=== PATIENT | female | born 1990 | race Caucasian/White ===

== ENCOUNTER 2016-06-20 16:16 | Emergency (ER) | payer OTHER ==
[2016-06-20 16:23] VITALS: BP 135/84
[2016-06-20] MEDS ORDERED: HYDROcodone/ACETAMINOPHEN 1 EACH TABLET PO ONE ×2 (16:38→18:59)
--- NOTE | 2016-06-20 16:47 | ERNOTE ---
ER Female HPI Date of Service: 06/20/16 Stated Complaint: 4 WEEKS - PAIN/BLEEDING Presenting Symptoms: vaginal bleeding Time Seen by Provider: 06/20/16 16:27 Source: patient Exam Limitations: no limitations Immunizations: IMMUNIZATION HX Immunizations Up to Date Yes History of Influenza Vaccine No Hx Pneumococcal Vaccination No Allergies/Adverse Reactions: Allergies ketorolac tromethamine [From Toradol] Allergy (Verified 06/20/16 16:22) swelling, itching, rash oxycodone Allergy (Verified 06/20/16 16:22) nausea and vomitting Home Medications: HOME MEDICATIONS Hydrocodone/Acetaminophen [[place] 5-325 Tablet] 1 - 2 tab PO QID PRN #20 tab 01/27 [Last Taken Unknown] - History of Present Illness Narrative: This is a 25-year-old he positive woman who may or may not have a viable intrauterine . For the last month or so she's been having some bleeding vaginally. She also has had some uterine cramps. 3 days ago she had a pelvic and transvaginal ultrasound which disclosed probable corpus luteum cyst in the right ovary but no clear-cut evidence of an intrauterine . By her report, hormone levels have been somewhat variable. 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 She also had more cramps in her right low pelvis, so for these 2 reasons she came to the [facility] emergency room by private vehicle. I have reviewed the ultrasound report from 3 days ago. Timing: Present: getting worse Quality: Present: moderate, cramping Onset Location: Present: RLQ, suprapubic Radiation: Present: none Activities at Onset: Present: none Prior Abdominal Problems: Present: similar symptoms Associated Symptoms: Present: other - vaginal bleeding Prior Treatment: Present: recently seen, treated by physician. Absent: currently on antibiotics Review of Systems - Review of Systems Constitutional: Present: no symptoms reported EYE: Present: no symptoms reported ENT: Present: no symptoms reported Respiratory: Present: no symptoms reported Cardiology: Present: no symptoms reported Gastrointestinal/Abdominal: Present: no symptoms reported Genitourinary: Present: See HPI Musculoskeletal: Present: no symptoms reported Skin: Present: no symptoms reported Neurological: Present: no symptoms reported Endocrine: Present: no symptoms reported Hematologic/Lymphatic: Present: no symptoms reported Psych: Present: no symptoms reported All Other Systems: All systems neg except as marked - Patient's Past Medical History Patient History - Medical: Bipolar Patient History - Cardiac/Respiratory: No pertinent hx Patient History - Cancer: No Hx of Cancer Patient History - Surgical Procedures: , D & C, T & A - Family History Mother Family History - Medical: Other Family History - Cardiac/Respiratory: CHF Grandmother-Maternal Family History - Medical: No pertinent hx Family History - Cardiac/Respiratory: No pertinent hx Multiple uncles Family History - Medical: No pertinent hx Family History - Cardiac/Respiratory: No pertinent hx - Social History Living Situations: home Does anyone smoke in the home?: Yes Smoking Status: Light tobacco smoker Alcohol Use: none Drug Use: none Physical Exam - Physical Exam General Appearance: Present: wd/wn, alert, no apparent distress, anxious Eye Exam: Normal inspection: bilateral, PERRL: bilateral, EOMI: bilateral Ears, Nose, Throat: Present: normal ENT inspection, hearing grossly normal Neck: Present: normal inspection Respiratory: Present: no respiratory distress, lungs clear Cardiovascular/Chest: Present: regular rate, rhythm, no murmur Gastrointestinal/Abdominal: Present: normal bowel sounds, nontender, nondistended, soft, no organomegaly Back Exam: Present: normal inspection, no CVA tenderness Extremity Exam: Present: normal inspection, no edema Neurological Exam: Present: alert, oriented Skin Exam: Present: cool/dry, pallor ED Progress - Results and Orders Patient's Lab Results:: I have reviewed the patient's lab results. - Vital Signs Patient's Vital Signs:: I have reviewed the patient's vital signs. Vital Signs: Vital Signs 06/20/16 16:17 Temperature 35.5 C L Pulse Rate 101 H Respiratory 12 Rate Blood Pressure 135/84 O2 Sat by Pulse 100 Oximetry - CT/Ultrasound CT/Ultrasound Narrative: I have reviewed the ultrasound report. Thickened endometrium, 2 mm anechoic structure in the fundus, luteal cyst right ovary. - Progress/Reassessment Chief Complaint: Genitourinary Problem Departure Clinical Impression: Pelvic pain affecting in first trimester, antepartum, Vaginal bleeding before 22 weeks gestation - Departure Disposition: Home self-care Condition: Good Instructions: Vaginal Bleeding During , First Trimester Additional Instructions: Followup with your OB doctor tomorrow or the next day. Prescriptions: Hydrocodone/Acetaminophen [[place] 5-325 Tablet] 1 - 2 tab PO QID PRN #20 tab PRN Reason: Pain
[2016-06-20] MEDS ORDERED: HYDROcodone/ACETAMINOPHEN 1 EACH TABLET ONE ×3 (17:00→19:05)
[2016-06-20 17:01] LABS: Hematocrit 39.6 % (37.0-47.0); Hemoglobin 13.1 gm/dL (12.5-16.0); Mean Cell Volume 88.6 fl (78-100); Mean Corpuscular Hemoglobin 29.3 pg (27-31); Mean Corpuscular Hgb Conc 33.1 g/dl (32-36); Mean Platelet Volume 9.7 fl (6.0-9.5); Neutrophil # 5.6 K/mm3 (1.3-6.0); Neutrophil % 64.6 % (42-75.0); Platelet Count 277 K/mm3 (150-450); Red Blood Count 4.47 M/mm3 (4.2-5.4); White Blood Count 8.6 K/mm3 (4.0-10.5)
[2016-06-20 17:08] LABS: Anion Gap 13.8 mmol/L (6.8-13.8); BUN/Creatinine Ratio 18.1 (9.0-21.6); Calcium * 9.4 mg/dL (7.9-10.9); Carbon Dioxide 27.2 mmol/L (24-32.6); Estimated Creat Clear 91.6
[2016-06-20 17:14] LABS: Urine Appearance Bloody; Urine Bilirubin Negative (NEGATIVE); Urine Blood 250 /ul (NEGATIVE); Urine Color Yellow; Urine Ketone Negative (NEGATIVE); Urine Nitrite Negative (NEGATIVE); Urine Protein 30 mg/dL (NEGATIVE); Urine Specific Gravity 1.025 SP.GR. (1.005-1.010); Urine Urobilinogen Normal (NORMAL)
[2016-06-20 17:15] LABS: Urine RBC >50 /hpf (0-5)
[2016-06-20 17:18] LABS: Urine Bacteria 2+
[2016-06-20] MEDS ORDERED: PROMETHAZINE HCL 25 MG/ML AMPUL ONE (18:32)
[2016-06-20] MEDS ORDERED: PROMETHAZINE HCL 25 MG/ML AMPUL IM ONE (18:46)
== END 2016-06-20 19:25 | disposition home or self-care (01) ==
LOC: ER 16:16
DX: O03.9 Complete or unspecified spontaneous abortion without complication (principal); F17.200 Nicotine dependence, unspecified, uncomplicated

== ENCOUNTER 2016-06-26 15:18 | Emergency (ER) | payer OTHER ==
--- NOTE | 2016-06-26 16:46 | ERNOTE ---
ER Female HPI Date of Service: 06/26/16 Stated Complaint: VAGINAL BLEEDING.4 WEEKS Presenting Symptoms: vaginal bleeding Time Seen by Provider: 06/26/16 16:18 Source: patient Exam Limitations: no limitations Immunizations: IMMUNIZATION HX Immunizations Up to Date Yes History of Influenza Vaccine No Hx Pneumococcal Vaccination No Allergies/Adverse Reactions: Allergies ketorolac tromethamine [From Toradol] Allergy (Verified 06/20/16 16:22) swelling, itching, rash oxycodone Allergy (Verified 06/20/16 16:22) nausea and vomitting Home Medications: HOME MEDICATIONS Metoprolol Tartrate [Lopressor] 50 mg PO DAILY 06/26/16 [Last Taken Unknown] Pain Score #1 Pain Score: 8 - History of Present Illness Date (Duration): 06/20/16 Timing: Present: constant, getting worse Quality: Present: moderate, stabbing Onset Location: Present: other - right groin Activities at Onset: Present: rest Prior Abdominal Problems: Present: none Modifying Factors - (Improves): Present: analgesics Modifying Factors - (Worsens): Present: movement Associated Symptoms: Present: nausea, other - constant pain right groin Prior Treatment: Present: recently seen - seen by Dr Benson and Dr Vela Review of Systems - Review of Systems Constitutional: Present: See HPI EYE: Present: no symptoms reported ENT: Present: no symptoms reported Respiratory: Present: no symptoms reported. Absent: shortness of breath, cough Cardiology: Present: no symptoms reported. Absent: chest pain, palpitations, syncope Gastrointestinal/Abdominal: Present: nausea. Absent: vomiting, abdominal pain Genitourinary: Present: no symptoms reported Musculoskeletal: Present: no symptoms reported. Absent: back pain, muscle pain , muscle stiffness Skin: Present: no symptoms reported. Absent: rash, lesions Neurological: Present: no symptoms reported. Absent: headache, dizziness/light- headedness, weakness, numbness Endocrine: Present: no symptoms reported Hematologic/Lymphatic: Present: no symptoms reported Psych: Present: no symptoms reported - Patient's Past Medical History Patient History - Medical: Bipolar Patient History - Cardiac/Respiratory: No pertinent hx Patient History - Cancer: No Hx of Cancer Patient History - Surgical Procedures: , D & C, T & A - Family History Mother Family History - Medical: Other Family History - Cardiac/Respiratory: CHF Grandmother-Maternal Family History - Medical: No pertinent hx Family History - Cardiac/Respiratory: No pertinent hx Multiple uncles Family History - Medical: No pertinent hx Family History - Cardiac/Respiratory: No pertinent hx - Social History Living Situations: significant other Does anyone smoke in the home?: Yes Smoking Status: Current every day smoker Have you smoked in the past 12 months: Yes Alcohol Use: none Drug Use: none Physical Exam - Physical Exam General Appearance: Present: wd/wn, alert, no apparent distress Eye Exam: Normal inspection: bilateral Ears, Nose, Throat: Present: hearing grossly normal. Absent: dry mucous membranes Neck: Present: normal inspection, nontender, supple, full range of motion. Absent: limited range of motion Respiratory: Present: no respiratory distress, normal breath sounds, no accessory muscle use, chest nontender, lungs clear. Absent: chest tenderness, respiratory distress, accessory muscle use Cardiovascular/Chest: Present: regular rate, rhythm, no murmur, normal peripheral pulses Gastrointestinal/Abdominal: Present: normal bowel sounds, nontender, nondistended, soft, no organomegaly. Absent: distended, guarding, rebound Back Exam: Present: normal inspection, normal range of motion, no CVA tenderness , no vertebral tenderness Extremity Exam: Present: normal inspection, non-tender, no edema, normal range of motion Neurological Exam: Present: alert, oriented, normal mood/affect, no motor/ sensory deficits Skin Exam: Present: normal color, warm/dry. Absent: diaphoresis, cyanosis Lymphatic Exam: Present: no adenopathy ED Progress - Results and Orders Patient's Lab Results:: I have reviewed the patient's lab results. - Vital Signs Patient's Vital Signs:: I have reviewed the patient's vital signs. Vital Signs: Vital Signs 06/26/16 16:08 Temperature 35.9 C L Pulse Rate 94 Respiratory 14 Rate Blood Pressure 128/75 O2 Sat by Pulse 98 Oximetry - Progress/Reassessment Chief Complaint: Genitourinary Problem Progress:: Improved Departure Clinical Impression: Miscarriage - Departure Disposition: Home Follow Up Needed Condition: Good Instructions: Miscarriage, [id number] Additional Instructions: may have some bleeding for next few days. Return to ED if you bleed through/ saturate one pad per hour or if you have dizziness or chest pain. Take 500- 1000 mg Tylenol every 6 hours for pain Referrals: Yamilex Vela MD [Staff Physician] -
[2016-06-26] MEDS ORDERED: NORMAL SALINE 1,000 ML IV ONE (16:54)
[2016-06-26] MEDS ORDERED: METOCLOPRAMIDE HCL 5 MG/ML VIAL IV ONE (16:55)
[2016-06-26] MEDS ORDERED: MORPHINE SULFATE 2 MG/ML DISP.SYRIN IV ONE (16:55)
[2016-06-26] MEDS ORDERED: MORPHINE SULFATE 2 MG/ML DISP.SYRIN ONE (17:13)
[2016-06-26] MEDS ORDERED: METOCLOPRAMIDE HCL 5 MG/ML VIAL ONE (17:13)
[2016-06-26 18:22] VITALS: BP 120/78
== END 2016-06-26 18:21 | disposition home or self-care (01) ==
LOC: ER 15:18
DX: O03.9 Complete or unspecified spontaneous abortion without complication (principal); F17.210 Nicotine dependence, cigarettes, uncomplicated

== ENCOUNTER 2016-08-26 10:21 | Emergency (ER) | payer OTHER ==
--- OUTSIDE RECORDS SUMMARY | 2016-08-26 11:40 | XMS REPORT | Continuity of Care Document ---
:1990 Author Organization [employer] [place] [address] Care Team Providers Name Role Phone Pranav Atkinson Primary Care Provider [phone] Source Comments This disclosure is being made pursuant to the [employer] program and maynot contain all information available regarding this patient.[employer] Active Allergies and Adverse Reactions Allergen Noted Date Severity Reactions Comments Bee Venom 02/20/2014 High Hives Current Medications Be aware that medications may not be up to date as of this document. Alwaysverify current medications with the patient. Prescription Sig. Disp. Refills Start Date End Date Status ranitidine (ZANTAC) 150 Take 0.5 tablets 30 tablet 1 05/31/2014 Active MG tablet by mouth 2 (two) times daily as needed for Heartburn. vitamin 28-0.8 Take 1 tablet by 30 each 11 06/20/2014 Active MG TABS tablet mouth daily. butalbital-acetaminophe Take 1 tablet by 30 tablet 0 07/30/2014 Active n-caffeine (FIORICET, mouth every 4 ESGIC) 50-325-40 MG per (four) hours as tablet needed for Pain. traMADol (ULTRAM) 50 MG 1 tab po q6 hours 30 tablet 0 09/26/2014 Active tablet prn pain Active Problems Problem Noted Date Bipolar disorder (HCC) 03/17/2014 Resolved Problems Problem Noted Date Resolved Date Poor growth complicating , antepartum 07/17/2014 07/23/2014 High risk due to history of labor 03/17/2014 09/02/2014 History of delivery, currently 03/17/2014 09/02/2014 Vaginal bleeding in 03/17/2014 07/17/2014 Immunizations Name Dates Previously Given Next Due DTaP 11/30/1993,01/07/1989,1988,09/10 Hep B, Adolescent Or Pediatric 03/30/1999,10/20/1998,09/15/1998 HiB PRP-OMP 09/23/1989 INFLUENZA, INACTIVATED, QUADRIVALENT, 05/21/2014 3 YEARS AND older, single dose syringe/vial MMR 11/30/1993,09/23/1989 OPV 11/30/1993,01/07/1989,1988,09/10 Tdap 07/04/2014 Social History Tobacco Use Types Packs/Day Years Used Date Former Smoker Quit: 10/15/2013 Smokeless Tobacco: Never Used Alcohol Use Drinks/Week oz/Week Comments No Last Filed Vital Signs Vital Sign Reading Time Taken Blood Pressure 128/72 09/26/2014 10:48 AM CDT Pulse 108 09/26/2014 10:48 AM CDT Temperature 36.9 C (98.5 F) 09/26/2014 10:48 AM CDT Respiratory Rate 18 09/26/2014 10:48 AM CDT Height 1.651 m (5' 5") 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
--- NOTE | 2016-08-26 12:14 | ERNOTE ---
Back Pain ER HPI Date of Service: 08/26/16 Presenting Symptoms: injury/pain to back Time Seen by Provider: 08/26/16 11:29 Source: patient, RN notes reviewed Exam Limitations: no limitations Immunizations: IMMUNIZATION HX Immunizations Up to Date Yes History of Influenza Vaccine No Hx Pneumococcal Vaccination No Allergies/Adverse Reactions: Allergies ketorolac tromethamine [From Toradol] Allergy (Verified 08/26/16 10:48) swelling, itching, rash oxycodone Allergy (Verified 08/26/16 10:48) nausea and vomitting Home Medications: HOME MEDICATIONS Metoprolol Tartrate [Lopressor] 50 mg PO DAILY 06/26/16 [Last Taken Unknown] Cyclobenzaprine HCl [Flexeril] 10 mg PO TID PRN #30 tab 08/26/16 [Last Taken Unknown] HYDROcodone/ACETAMINOPHEN [[place] 5-325] 1 tab PO Q6H PRN #12 tab 08/26/16 [Last Taken Unknown] Ibuprofen [Motrin] 600 mg PO Q6H PRN #40 tab 08/26/16 [Last Taken Unknown] Narrative: 26 y/o female ambulatory to the ED for right lower back pain that began last night. She was at work at the time, but denies any specific injury. She took ibuprofen last night without improvement. The pain was radiating down her leg today, and she was having numbness in her foot. She has not taken anything for the pain. She has been seen here for back pain several times in the past. Date (Duration): 08/25/16 Location of pain: Reports: lower back, radiating to rt thigh/leg Activities at Onset: Reports: none Recent Injury?: Reports: no Possible Precipitating Factor: Reports: lifting Associated Symptoms: Denies: fever/chills, sweating, constipation/incontinence, nausea/vomiting, problems urinating, difficulty walking, lightheadedness, numbess/weakness in legs Review of Systems - Review of Systems Constitutional: Absent: recent illness, fever, chills EYE: Present: no symptoms reported ENT: Present: no symptoms reported Respiratory: Absent: shortness of breath, cough Cardiology: Absent: chest pain, edema Gastrointestinal/Abdominal: Absent: nausea, abdominal pain Genitourinary: Absent: frequency, dysuria Musculoskeletal: Present: back pain. Absent: joint pain Skin: Absent: rash, lesions Neurological: Present: numbness, tingling. Absent: headache, dizziness/light- headedness, weakness Endocrine: Present: no symptoms reported Hematologic/Lymphatic: Present: no symptoms reported Psych: Present: anxiety - Patient's Past Medical History Patient History - Medical: Bipolar Patient History - Cardiac/Respiratory: Other Patient History - Cancer: No Hx of Cancer Patient History - Surgical Procedures: , D & C, T & A Patient History - Other: None LMP (females 10-50): now - Family History Mother Family History - Medical: Other Family History - Cardiac/Respiratory: CHF Grandmother-Maternal Family History - Medical: No pertinent hx Family History - Cardiac/Respiratory: No pertinent hx Multiple uncles Family History - Medical: No pertinent hx Family History - Cardiac/Respiratory: No pertinent hx - Social History Living Situations: home Abuse History: No History of abuse Psych History: Hx of Bipolar Disorder Does anyone smoke in the home?: Yes Smoking Status: Current every day smoker Alcohol Use: none Drug Use: none - Immunizations Immunizations Up to Date: Yes Hx Pneumococcal Vaccination: No History of Influenza Vaccine: No Physical Exam - Physical Exam General Appearance: Present: wd/wn, alert, mild distress, other - disheveled Neck: Present: normal inspection, nontender, supple, full range of motion Respiratory: Present: no respiratory distress, normal breath sounds, no accessory muscle use, lungs clear Cardiovascular/Chest: Present: regular rate, rhythm, no murmur, normal peripheral pulses Gastrointestinal/Abdominal: Present: normal bowel sounds, nontender, nondistended, soft Back Exam: Present: no CVA tenderness, no vertebral tenderness, decreased range of motion, other - right lumbar region muscle tenderness Extremity Exam: Present: non-tender, no edema, decreased range of motion - positive straight leg test on right at 15 degrees Neurological Exam: Present: alert, oriented, normal mood/affect, no motor/ sensory deficits, other - normal strength against resistance in legs DTR: N=norm/NB=norm/brisk/A=abs/DD=dull/dimin/HC=hyperactive: Knee (R): Normal, Knee (L): Normal Skin Exam: Present: normal color, warm/dry ED Progress - Vital Signs Patient's Vital Signs:: I have reviewed the patient's vital signs. Vital Signs: Vital Signs 08/26/16 10:44 Temperature 35.9 C L Pulse Rate 101 H Respiratory 12 Rate Blood Pressure 131/78 O2 Sat by Pulse 98 Oximetry - Progress/Reassessment Chief Complaint: Back Pain Progress:: Unchanged Plan - Plan Plan: Offered to give medication here for pain but patient drove herself here, agreeable to getting her rx and taking meds at home Departure Clinical Impression: Back pain Qualifiers: Back pain location: low back pain Chronicity: acute Back pain laterality: right Sciatica presence: with sciatica Sciatica laterality: sciatica of right side Qualified Code(s): M54.41 - Lumbago with sciatica, right side - Departure Disposition: Home self-care Condition: Stable Instructions: Back Pain, Adult, Form - Excuse from Work, School, or Physical Activity Prescriptions: Cyclobenzaprine HCl [Flexeril] 10 mg PO TID PRN #30 tab PRN Reason: MUSCLE SPASMS HYDROcodone/ACETAMINOPHEN [[place] 5-325] 1 tab PO Q6H PRN #12 tab PRN Reason: Pain Ibuprofen [Motrin] 600 mg PO Q6H PRN #40 tab PRN Reason: Pain
[2016-08-26 12:37] VITALS: BP 148/79
== END 2016-08-26 11:57 | disposition home or self-care (01) ==
LOC: ER 10:21
DX: M54.41 Lumbago with sciatica, right side (principal); F17.210 Nicotine dependence, cigarettes, uncomplicated

== ENCOUNTER 2016-08-27 19:16 | Emergency (ER) | payer OTHER ==
--- OUTSIDE RECORDS SUMMARY | 2016-08-27 21:10 | XMS REPORT | Continuity of Care Document ---
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
[2016-08-27] MEDS ORDERED: HYDROcodone/ACETAMINOPHEN 1 EACH TABLET ONE (21:11)
[2016-08-27] MEDS ORDERED: HYDROcodone/ACETAMINOPHEN 1 EACH TABLET PO ONE (21:11)
--- NOTE | 2016-08-27 21:12 | ERNOTE ---
ENT HPI Presenting Symptoms: dental pain Time Seen by Provider: 08/27/16 21:05 Source: patient Exam Limitations: no limitations - Immun/Allergies/Home Medications Immunizations: IMMUNIZATION HX Immunizations Up to Date Yes History of Influenza Vaccine Yes Hx Pneumococcal Vaccination No Allergies/Adverse Reactions: Allergies Allergy/AdvReac Type Severity Reaction Status Date / Time ketorolac tromethamine Allergy swelling, Verified 08/27/16 19:26 [From Toradol] itching, rash oxycodone Allergy nausea and Verified 08/27/16 19:26 vomitting Home Medications: HOME MEDICATIONS Metoprolol Tartrate [Lopressor] 50 mg PO DAILY 06/26/16 [Last Taken Unknown] Amoxicillin Trihydrate [Amoxil] 875 mg PO BID 08/27/16 [Last Taken Unknown] HYDROcodone/ACETAMINOPHEN [[place] 5-325] 1 - 2 tab PO Q6H PRN #12 tab 08/27/16 [ Last Taken Unknown] Tramadol HCl [Rybix Odt] 50 mg PO QID 08/27/16 [Last Taken Unknown] - History of Present Illness Narrative: pt had her wisdom teeth removed today and she is on ABX but her pain medication Tramadol is not helping her pain at all. Review of Systems - Review of Systems Constitutional: Present: chills EYE: Present: no symptoms reported ENT: Present: See HPI Respiratory: Present: no symptoms reported Cardiology: Present: no symptoms reported Gastrointestinal/Abdominal: Present: no symptoms reported Genitourinary: Present: no symptoms reported Musculoskeletal: Present: no symptoms reported Skin: Present: no symptoms reported - Patient's Past Medical History Patient History - Medical: Bipolar Patient History - Cardiac/Respiratory: Other Patient History - Cancer: No Hx of Cancer Patient History - Surgical Procedures: , D & C, T & A Patient History - Other: None LMP (females 10-50): now - Family History Mother Family History - Medical: Other Family History - Cardiac/Respiratory: CHF Grandmother-Maternal Family History - Medical: No pertinent hx Family History - Cardiac/Respiratory: No pertinent hx Multiple uncles Family History - Medical: No pertinent hx Family History - Cardiac/Respiratory: No pertinent hx - Social History Living Situations: home Abuse History: No History of abuse Psych History: Hx of Bipolar Disorder Does anyone smoke in the home?: Yes Smoking Status: Current some day smoker Alcohol Use: none Drug Use: none - Immunizations Immunizations Up to Date: Yes Hx Pneumococcal Vaccination: No History of Influenza Vaccine: Yes Physical Exam - Physical Exam General Appearance: Present: wd/wn, alert, no apparent distress - she is in pain and crying Eye Exam: Normal inspection: bilateral, PERRL: bilateral, EOMI: bilateral Ears, Nose, Throat: Present: other - pt has had wisdom tooth removed on the left side. she does have tenderness of the face on that side and firm nodule in left submandibular region. No streaking or redness noted Neck: Present: normal inspection, nontender, supple. Absent: lymphadenopathy (L ) Respiratory: Present: no respiratory distress, normal breath sounds, no accessory muscle use, chest nontender, lungs clear Cardiovascular/Chest: Present: regular rate, rhythm, no murmur, normal peripheral pulses Extremity Exam: Present: normal inspection ED Progress - Vital Signs Patient's Vital Signs:: I have reviewed the patient's vital signs. Vital Signs: Vital Signs 08/27/16 08/27/16 19:21 20:29 Temperature 36.8 C 37.6 C H Pulse Rate 111 H 115 H Respiratory 20 18 Rate Blood Pressure 135/102 138/89 O2 Sat by Pulse 100 99 Oximetry - Progress/Reassessment Chief Complaint: Dental Problem Plan - Plan Plan: pt has legitimate toothache and informs me that her dentist is not available at this hour. She already has pain meds however we will treat her for pain with [place] Departure Clinical Impression: Toothache - Departure Disposition: Home self-care Condition: Fair Prescriptions: HYDROcodone/ACETAMINOPHEN [[place] 5-325] 1 - 2 tab PO Q6H PRN #12 tab PRN Reason: Pain
[2016-08-27] MEDS ORDERED: ACETAMINOPHEN 500 MG TABLET PO ONE (21:20)
[2016-08-27 21:56] VITALS: BP 142/86
== END 2016-08-27 21:21 | disposition home or self-care (01) ==
LOC: ER 19:16
DX: K08.89 Other specified disorders of teeth and supporting structures (principal)

== ENCOUNTER 2016-08-29 10:16 | Emergency (ER) | payer OTHER ==
[2016-08-29 10:38] VITALS: BP 131/82
--- OUTSIDE RECORDS SUMMARY | 2016-08-29 10:51 | XMS REPORT | Continuity of Care Document ---
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
--- NOTE | 2016-08-29 11:00 | ERNOTE ---
ENT HPI Date of Service: 08/29/16 Presenting Symptoms: other - left lower jaw swelling Time Seen by Provider: 08/29/16 10:42 Source: patient Exam Limitations: no limitations - Immun/Allergies/Home Medications Immunizations: IMMUNIZATION HX Immunizations Up to Date Yes History of Influenza Vaccine No Hx Pneumococcal Vaccination No Allergies/Adverse Reactions: Allergies Allergy/AdvReac Type Severity Reaction Status Date / Time ketorolac tromethamine Allergy swelling, Verified 08/29/16 10:38 [From Toradol] itching, rash oxycodone AdvReac nausea and Verified 08/29/16 10:38 vomitting Home Medications: HOME MEDICATIONS Metoprolol Tartrate [Lopressor] 50 mg PO DAILY 06/26/16 [Last Taken Unknown] Amoxicillin Trihydrate [Amoxil] 875 mg PO BID 08/27/16 [Last Taken Unknown] HYDROcodone/ACETAMINOPHEN [[place] 5-325] 1 - 2 tab PO Q6H PRN #12 tab 08/27/16 [ Last Taken Unknown] Tramadol HCl [Rybix Odt] 50 mg PO QID 08/27/16 [Last Taken Unknown] - Pain Score Pain Score #1 Pain Score: 4 - History of Present Illness Narrative: patient is a 26 year old female who presents to the ED with complaints of worsening swelling to left lower jaw. States had left wisdom tooth pulled . States she came to the ED 08/27 for pain control and now is back because she is afraid the swelling is worse and that it is infected. States she has had intermittent fevers but denies chills or body aches. States she is able to eat and drink ok. Has been taking [place] for pain as previously prescribed Date (Duration): 08/29/16 Severity: Present: mild ENT Location: Present: dental - s/p left wisdom teeth pulled Prearrival Treatment: Present: prescription meds - Amox and [place] Modifying Factors - Improves: Reports: nothing Modifying Factors - Worsens: Reports: nothing Associated Symptoms - ENT: Reports: fever, jaw swelling. Denies: malaise, poor fluid intake, poor solid intake, cough, voice change, sore throat, drooling, nasal congestion/drainage, facial pain/swelling, tooth pain, change in hearing, ear drainage, headache Prior Treament: Reports: recently seen, treated by physician, currently on antibiotics Review of Systems - Review of Systems Constitutional: Present: fever. Absent: recent illness, chills, diaphoresis, weakness, fatigue, malaise EYE: Present: no symptoms reported. Absent: blurred vision, vision changes ENT: Absent: ear pain, ear discharge, nose congestion, nasal drainage, sore throat, throat swelling Respiratory: Absent: shortness of breath, cough Cardiology: Absent: chest pain, palpitations, syncope Gastrointestinal/Abdominal: Absent: nausea, vomiting, diarrhea Genitourinary: Present: no symptoms reported Musculoskeletal: Present: no symptoms reported Skin: Present: no symptoms reported Neurological: Present: no symptoms reported Endocrine: Present: no symptoms reported Hematologic/Lymphatic: Present: no symptoms reported - Patient's Past Medical History Patient History - Medical: Bipolar Patient History - Cardiac/Respiratory: Other Patient History - Cancer: No Hx of Cancer Patient History - Surgical Procedures: , D & C, T & A Patient History - Other: None LMP (females 10-50): this week - Family History Mother Family History - Medical: Other Family History - Cardiac/Respiratory: CHF Grandmother-Maternal Family History - Medical: No pertinent hx Family History - Cardiac/Respiratory: No pertinent hx Multiple uncles Family History - Medical: No pertinent hx Family History - Cardiac/Respiratory: No pertinent hx - Social History Living Situations: significant other Abuse History: No History of abuse Psych History: Hx of Bipolar Disorder Does anyone smoke in the home?: Yes Smoking Status: Current some day smoker Have you smoked in the past 12 months: Yes Do you dip or chew tobacco: No Smoking Stop Date: 08/26/16 Alcohol Use: none Drug Use: none - Immunizations Immunizations Up to Date: Yes Hx Pneumococcal Vaccination: No History of Influenza Vaccine: No Physical Exam - Physical Exam General Appearance: Present: wd/wn, alert, no apparent distress Eye Exam: Normal inspection: bilateral, PERRL: bilateral Ears, Nose, Throat: Present: normal ENT inspection, normal pharynx, other - left lower back tooth socket clean without purulent drainage or signs of infection. Left lower side of cheek pink, intact and without signs of infection. Absent: pharyngeal erythema, pharyngeal swelling, dry mucous membranes Neck: Present: normal inspection, nontender Respiratory: Present: no respiratory distress, normal breath sounds, no accessory muscle use, chest nontender, lungs clear Cardiovascular/Chest: Present: regular rate, rhythm, no murmur, normal peripheral pulses. Absent: gallop/S3, gallop/S4, systolic murmur, diastolic murmur Peripheral Pulses: N=norm/S=strong/W=weak/B=bound/A=absent: Radial (R): Normal, Radial (L): Normal Gastrointestinal/Abdominal: Present: normal bowel sounds Rectal Exam: Present: deferred Back Exam: Present: normal range of motion Extremity Exam: Present: normal inspection Neurological Exam: Present: alert, oriented, normal mood/affect, no motor/ sensory deficits Skin Exam: Present: normal color, warm/dry Lymphatic Exam: Present: no adenopathy ED Progress - Vital Signs Patient's Vital Signs:: I have reviewed the patient's vital signs. Vital Signs: Vital Signs 08/29/16 10:27 Temperature 36.5 C Pulse Rate 117 H Respiratory 19 Rate Blood Pressure 131/82 O2 Sat by Pulse 99 Oximetry - Progress/Reassessment Chief Complaint: Dental Problem Departure Clinical Impression: Pain, dental, Swelling - Departure Disposition: Home self-care Condition: Good Instructions: Tooth Avulsion Additional Instructions: Peak swelling today and tomorrow. Apply ice to left jaw 30 minutes 6x a day. Continue with antibiotic and narcotic. Alternate Tramadol with [place].
== END 2016-08-29 11:04 | disposition home or self-care (01) ==
LOC: ER 10:16
DX: K08.89 Other specified disorders of teeth and supporting structures (principal)

== ENCOUNTER 2016-09-01 14:33 | Emergency (ER) | payer OTHER ==
[2016-09-01 14:42] VITALS: BP 134/86
[2016-09-01 15:19] LABS: Hematocrit 36.6 % (37.0-47.0); Hemoglobin 12.1 gm/dL (12.5-16.0); Mean Corpuscular Hemoglobin 29.1 pg (27-31); Mean Corpuscular Hgb Conc 33.1 g/dl (32-36); Mean Platelet Volume 9.9 fl (6.0-9.5); Platelet Count 194 K/mm3 (150-450); Red Blood Count 4.16 M/mm3 (4.2-5.4); White Blood Count 2.8 K/mm3 (4.0-10.5)
[2016-09-01 15:23] LABS: Total Cells Counted 100
--- OUTSIDE RECORDS SUMMARY | 2016-09-01 15:43 | XMS REPORT | Continuity of Care Document ---
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
[2016-09-01 15:51] LABS: Atypical (Reactive) Lymph 2 % (0-2); Eosinophil 1 % (0-3); Lymphocyte 54 % (20-51); Monocyte 15 % (0-9); Neutrophil 28 % (42-75); Neutrophil # 0.8 K/mm3 (1.3-6.0); Platelet Estimate Normal (NORMAL); RBC Morphology Normal (NORMAL)
--- NOTE | 2016-09-01 16:11 | ERNOTE ---
ENT HPI Presenting Symptoms: dental pain Time Seen by Provider: 09/01/16 15:33 Source: patient Exam Limitations: no limitations - Immun/Allergies/Home Medications Immunizations: IMMUNIZATION HX Immunizations Up to Date Yes History of Influenza Vaccine No Hx Pneumococcal Vaccination No Allergies/Adverse Reactions: Allergies Allergy/AdvReac Type Severity Reaction Status Date / Time ketorolac tromethamine Allergy swelling, Verified 09/01/16 14:42 [From Toradol] itching, rash oxycodone AdvReac nausea and Verified 09/01/16 14:42 vomitting Home Medications: HOME MEDICATIONS Metoprolol Tartrate [Lopressor] 50 mg PO DAILY 06/26/16 [Last Taken Unknown] Amoxicillin Trihydrate [Amoxil] 500 mg PO TID 08/27/16 [Last Taken Unknown] HYDROcodone/ACETAMINOPHEN [[place] 5-325] 1 each PO Q4H PRN #12 tablet 09/01/16 [ Last Taken Unknown] - History of Present Illness Narrative: Patient had her wisdom teeth removed five days ago. She was seen in the ER the same day for pain and given vicodin rx (#12), she did not fill that till the next days as she had a vicodin rx (#12) from the day before when she was in the ER for back pain. She was seen in the ER again three days ago for swelling that persisted. Today she was send over from the walk in clinic for concerns about swelling and limited ability to open her mouth. The patient reports that the swelling overall has actually decreased but she now noticed a firm swollen area on her jaw bone that is tender. She is able to open her mouth to about the same degree since surgery, is able to drink, eat soft foods and swallow without problem. She denies any fever or chills, the pain radiates to her left ear. Review of Systems - Review of Systems Constitutional: Present: recent illness. Absent: fever, chills ENT: Absent: nose congestion, sore throat Respiratory: Present: cough. Absent: shortness of breath Cardiology: Absent: chest pain Gastrointestinal/Abdominal: Absent: nausea, vomiting, abdominal pain Skin: Absent: rash Neurological: Absent: weakness, numbness - Patient's Past Medical History Patient History - Medical: Bipolar Patient History - Cardiac/Respiratory: Other Patient History - Cancer: No Hx of Cancer Patient History - Surgical Procedures: , D & C, T & A Patient History - Other: None LMP (females 10-50): last week - Family History Mother Family History - Medical: Other Family History - Cardiac/Respiratory: CHF Grandmother-Maternal Family History - Medical: No pertinent hx Family History - Cardiac/Respiratory: No pertinent hx Multiple uncles Family History - Medical: No pertinent hx Family History - Cardiac/Respiratory: No pertinent hx - Social History Living Situations: home Abuse History: No History of abuse Psych History: Hx of Bipolar Disorder Does anyone smoke in the home?: Yes Alcohol Use: none Drug Use: none - Immunizations Immunizations Up to Date: Yes Hx Pneumococcal Vaccination: No History of Influenza Vaccine: No Physical Exam - Physical Exam General Appearance: Present: wd/wn, alert, no apparent distress Eye Exam: Normal inspection: bilateral, PERRL: bilateral Ears, Nose, Throat: Present: normal except - - well healing extraction site of left lower wisdon tooth, no erythema, swollen tender area on left jaw distal to extraction site, no pain on palpation on jaw bone on medial area, normal pharynx , other - no pain over TMJ, able to open mouth about 3cm between incisors Neck: Present: normal inspection Respiratory: Present: no respiratory distress, normal breath sounds, no accessory muscle use, lungs clear Cardiovascular/Chest: Present: regular rate, rhythm, no murmur Neurological Exam: Present: alert, oriented, normal mood/affect Skin Exam: Present: normal color, warm/dry ED Progress - Vital Signs Patient's Vital Signs:: I have reviewed the patient's vital signs. Vital Signs: Vital Signs 09/01/16 14:38 Temperature 36.6 C Pulse Rate 86 Respiratory 16 Rate Blood Pressure 134/86 O2 Sat by Pulse 99 Oximetry - Progress/Reassessment Chief Complaint: Dental Problem Progress Note-Subjective: 09/01/16 15:45 discussed that this is still most likely post op bruising and pain, no signs on infection symptoms over all are improving, has follow up with dentist in 5 days Departure Clinical Impression: Post-op pain - Departure Disposition: Home self-care Condition: Good Instructions: Dental Extraction, Care After, [id number] Additional Instructions: use the ibuprofen as instructed, use hydrocodone at night to sleep, follow up with your dentist as scheduled on Tuesday Prescriptions: HYDROcodone/ACETAMINOPHEN [[place] 5-325] 1 each PO Q4H PRN #12 tablet PRN Reason: Pain
== END 2016-09-01 15:57 | disposition home or self-care (01) ==
LOC: ER 14:33
DX: G89.18 Other acute postprocedural pain (principal)

== ENCOUNTER 2016-09-20 18:00 | Emergency (ER) | payer OTHER ==
[2016-09-20 18:17] VITALS: BP 109/81
--- OUTSIDE RECORDS SUMMARY | 2016-09-20 18:33 | XMS REPORT | Continuity of Care Document ---
:1990 Author Organization [employer] [place] [address] Care Team Providers Name Role Phone Pranav Atkinson Primary Care Provider [phone] Source Comments This disclosure is being made pursuant to the 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
--- NOTE | 2016-09-20 18:55 | ERNOTE ---
ENT [facility] Date of Service: 09/20/16 Presenting Symptoms: dental pain Time Seen by Provider: 09/20/16 18:27 Source: patient, RN notes reviewed Exam Limitations: no limitations - Immun/Allergies/Home Medications Immunizations: IMMUNIZATION HX Immunizations Up to Date Yes History of Influenza Vaccine Yes Hx Pneumococcal Vaccination No Allergies/Adverse Reactions: Allergies Allergy/AdvReac Type Severity Reaction Status Date / Time ketorolac tromethamine Allergy swelling, Verified 10/10/16 08:37 [From Toradol] itching, rash oxycodone AdvReac nausea and Verified 10/10/16 08:37 vomitting Home Medications: HOME MEDICATIONS Comb No.42/Folic Acid [Prena1 Chew Tablet] 1.4 mg PO DAILY 10/19/16 [ Last Taken Unknown] - History of Present Illness Narrative: 26 y/o female ambulatory to the ED with dental pain. She had her wisdom teeth extracted on September 15. She is concerned that she has an infection because she is having purulent drainage from the wounds. She has been using a prescription mouth rinse. She sees her dentist next week for follow up. Date (Duration): 09/15/16 ENT Location: Present: dental Prearrival Treatment: Present: over the counter meds, prescription meds Associated Symptoms - ENT: Reports: jaw swelling. Denies: fever, malaise, poor fluid intake, poor solid intake, sore throat, nasal congestion/drainage, facial pain/swelling, headache Prior Treament: Reports: recently seen, similar symptoms before Review of Systems - Review of Systems Constitutional: Absent: fever, chills, malaise EYE: Present: no symptoms reported ENT: Absent: ear pain, nose congestion, sore throat, throat swelling Respiratory: Absent: shortness of breath, cough Cardiology: Present: no symptoms reported Gastrointestinal/Abdominal: Absent: nausea, vomiting, abdominal pain Genitourinary: Present: no symptoms reported Musculoskeletal: Absent: muscle pain, neck pain Skin: Absent: lesions, lumps Neurological: Absent: headache, dizziness/light-headedness Endocrine: Present: no symptoms reported Hematologic/Lymphatic: Present: no symptoms reported Psych: Present: anxiety - Patient's Past Medical History Patient History - Medical: Anxiety, Bipolar, Depression Patient History - Cardiac/Respiratory: Other Patient History - Cancer: No Hx of Cancer Patient History - Surgical Procedures: , D & C, T & A Patient History - Other: None - Family History Mother Family History - Medical: Other Family History - Cardiac/Respiratory: CHF Grandmother-Maternal Family History - Medical: No pertinent hx Family History - Cardiac/Respiratory: No pertinent hx Multiple uncles Family History - Medical: No pertinent hx Family History - Cardiac/Respiratory: No pertinent hx - Social History Living Situations: home Abuse History: No History of abuse Psych History: Hx of Anxiety, Hx of Depression, Hx of Bipolar Disorder Does anyone smoke in the home?: Yes Smoking Status: Current every day smoker Cigarettes Packs Per Day: 0.5 Have you smoked in the past 12 months: Yes Do you dip or chew tobacco: No Patient requests Smoking Cessation Consult: No Initiate information on Smoking Cessation: No Alcohol Use: none Drug Use: none - Immunizations Immunizations Up to Date: Yes Hx Pneumococcal Vaccination: No History of Influenza Vaccine: Yes Physical Exam - Physical Exam General Appearance: Present: wd/wn, alert, no apparent distress Eye Exam: Normal inspection: bilateral, PERRL: bilateral Ears, Nose, Throat: Present: other - no facial or jaw swelling, no inflammation surrounding tooth extraction sites, no drainage noted. Absent: abnormal TM (R) , abnormal TM (L), nasal congestion, sinus pain/drainage, pharyngeal erythema, dry mucous membranes Neck: Present: normal inspection, nontender, supple Respiratory: Present: no respiratory distress, normal breath sounds, no accessory muscle use, lungs clear Cardiovascular/Chest: Present: regular rate, rhythm, no murmur Neurological Exam: Present: alert, oriented, normal mood/affect, no motor/ sensory deficits Skin Exam: Present: normal color, warm/dry Lymphatic Exam: Present: no adenopathy ED Progress - Vital Signs Patient's Vital Signs:: I have reviewed the patient's vital signs. Vital Signs: Vital Signs 09/20/16 18:12 Temperature 37.1 C Pulse Rate 96 Respiratory 14 Rate Blood Pressure 109/81 O2 Sat by Pulse 99 Oximetry - Progress/Reassessment Chief Complaint: Dental Problem Progress:: Unchanged Departure Clinical Impression: Pain, dental - Departure Disposition: Home Follow Up Needed Condition: Good Instructions: Dental Extraction, Care After, [id number] Additional Instructions: Continue mouthwash and rinses as directed by your dentist Contact them if symptoms worsen, otherwise see them as scheduled
== END 2016-09-20 19:05 | disposition home or self-care (01) ==
LOC: ER 18:00
DX: K08.89 Other specified disorders of teeth and supporting structures (principal); F17.210 Nicotine dependence, cigarettes, uncomplicated

== ENCOUNTER 2016-10-01 09:02 | Emergency (ER) | payer OTHER ==
[2016-10-01 09:30] LABS: Urine Bilirubin Negative (NEGATIVE); Urine Blood Negative /ul (NEGATIVE); Urine Ketone Negative (NEGATIVE); Urine Nitrite Negative (NEGATIVE); Urine Protein Negative (NEGATIVE); Urine Specific Gravity 1.025 SP.GR. (1.005-1.010); Urine Urobilinogen Normal (NORMAL)
--- OUTSIDE RECORDS SUMMARY | 2016-10-01 09:33 | XMS REPORT | Continuity of Care Document ---
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
[2016-10-01 09:37] LABS: Urine Appearance Clear; Urine Bacteria TRACE; Urine Color Yellow; Urine RBC TRACE /hpf (0-5); Urine WBC None Seen /hpf (0-5)
[2016-10-01 09:38] LABS: Hematocrit 38.4 % (37.0-47.0); Hemoglobin 12.8 gm/dL (12.5-16.0); Mean Cell Volume 88.1 fl (78-100); Mean Corpuscular Hemoglobin 29.4 pg (27-31); Mean Corpuscular Hgb Conc 33.3 g/dl (32-36); Mean Platelet Volume 9.8 fl (6.0-9.5); Neutrophil # 3.3 K/mm3 (1.3-6.0); Neutrophil % 64.7 % (42-75.0); Platelet Count 244 K/mm3 (150-450); Red Blood Count 4.36 M/mm3 (4.2-5.4); Red Cell Distribution Width 12.1 % (11.5-14.0)
[2016-10-01 09:52] LABS: Albumin * 3.9 gm/dl (3.4-5.0); Anion Gap 13.6 mmol/L (6.8-13.8); BUN/Creatinine Ratio 20.3 (9.0-21.6); Bilirubin, Total 0.4 mg/dL (0.0-1.1); Ca. Corrected For Albumin 9.1 mg/dL (8.4-10.2); Calcium * 9.3 mg/dL (7.9-10.9); Carbon Dioxide 25.4 mmol/L (24-32.6); Total Protein 7.9 gm/dL (6.2-8.2)
--- NOTE | 2016-10-01 10:21 | ERNOTE ---
Abdominal HPI - Narrative Date of Service: 10/01/16 - General Chief Complaint: Abdominal Pain Time Seen by Provider: 10/01/16 09:20 Source: patient Exam Limitations: no limitations - Immun/Allergies/Home Medications Immunizatons: IMMUNIZATION HX Immunizations Up to Date Yes History of Influenza Vaccine Yes Hx Pneumococcal Vaccination Yes Allergies/Adverse Reactions: Allergies ketorolac tromethamine [From Toradol] Allergy (Verified 10/01/16 09:13) swelling, itching, rash oxycodone Adverse Reaction (Verified 10/01/16 09:13) nausea and vomitting Home Medications: HOME MEDICATIONS Metoprolol Tartrate [Lopressor] 25 mg PO DAILY 06/26/16 [Last Taken Unknown] - History of Present Illness Narrative: Patient comes due to a RLQ pain. Patient reported that she had multiple tests at home and she is concern of having and ectopic . Timing: constant Quality: moderate Activities at Onset: rest Modifying Factors - (Improves): Present: other - nothing Modifying Factors - (Worsens): Present: movement Associated Symptoms: Present: nausea. Absent: headache, chest pain, diarrhea- gross blood, fever/chills, vomiting, loss of appetite, shortness of breath, swelling/mass in abdomen, syncope, weakness Prior Abdominal Problems: Absent: recent trauma, similar symptoms Prior Treatment: Absent: recently seen Review of Systems - Review of Systems Constitutional: Absent: fever, chills, diaphoresis, weakness, malaise EYE: Present: no symptoms reported ENT: Present: no symptoms reported Respiratory: Absent: shortness of breath, cough, orthopnea Cardiology: Absent: chest pain, palpitations, syncope Gastrointestinal/Abdominal: Present: nausea, abdominal pain - RLQ Pain. Absent : vomiting, diarrhea Genitourinary: Present: other - No bleeding reported. Absent: frequency, pain, dysuria, hematuria, discharge Musculoskeletal: Present: no symptoms reported Skin: Present: no symptoms reported Neurological: Present: no symptoms reported Endocrine: Present: no symptoms reported Hematologic/Lymphatic: Present: no symptoms reported Psych: Present: no symptoms reported - Patient's Past Medical History Patient History - Medical: Anxiety, Bipolar, Depression Patient History - Cardiac/Respiratory: Other Patient History - Cancer: No Hx of Cancer Patient History - Surgical Procedures: , D & C, T & A Patient History - Other: None LMP (females 10-50): - Family History Mother Family History - Medical: Other Family History - Cardiac/Respiratory: CHF Grandmother-Maternal Family History - Medical: No pertinent hx Family History - Cardiac/Respiratory: No pertinent hx Multiple uncles Family History - Medical: No pertinent hx Family History - Cardiac/Respiratory: No pertinent hx - Social History Living Situations: home Abuse History: No History of abuse Psych History: Hx of Anxiety, Hx of Depression, Hx of Bipolar Disorder Does anyone smoke in the home?: Yes Smoking Status: Current every day smoker Alcohol Use: none Drug Use: none - Immunizations Immunizations Up to Date: Yes Hx Pneumococcal Vaccination: Yes History of Influenza Vaccine: Yes Physical Exam - Physical Exam General Appearance: Present: wd/wn, alert, no apparent distress Eye Exam: Normal inspection: bilateral Ears, Nose, Throat: Present: normal ENT inspection, normal pharynx. Absent: dry mucous membranes Neck: Present: normal inspection, nontender Respiratory: Present: no respiratory distress, normal breath sounds, no accessory muscle use, chest nontender, lungs clear Cardiovascular/Chest: Present: regular rate, rhythm, no murmur, normal peripheral pulses Gastrointestinal/Abdominal: Present: normal bowel sounds, nondistended, soft, no organomegaly, tenderness - RLQ area. Absent: guarding, rebound Extremity Exam: Present: normal inspection Neurological Exam: Present: alert, oriented, normal mood/affect, no motor/ sensory deficits Skin Exam: Present: normal color, warm/dry Lymphatic Exam: Present: no adenopathy ED Progress - Date and Time Seen: Date and Time: 10/01/16 11:11 Patient at the moment has a + Test and US that show no IUP. Patient was found with a cyst on R cyst. At this point no free fluid identified. Patient at this point could be with and early , miscarrige or ectopic pregancy. Patient is to get follow up US and Lab work on Tuesday. Patient has been informed to return to the ER for this to be done. Patient has been given orientation about her condition and has been informed of the risk associated with ectopic . Patient understood and will come back. At the same time patient was instructed to return if her condition worsen or develop any bleeding. Patient agreed with plan. I had informed nursing that this patient must be seen by ER provider and is not a candidate for out patient procedures. - Results and Orders Patient's Lab Results:: I have reviewed the patient's lab results. Results and Orders: CBC: WNL CMP: WNL UA: Negative : Positive - Vital Signs Patient's Vital Signs:: I have reviewed the patient's vital signs. Vital Signs: Vital Signs 10/01/16 09:07 Temperature 36.4 C L Pulse Rate 98 Respiratory 18 Rate Blood Pressure 119/71 O2 Sat by Pulse 98 Oximetry - Progress/Reassessment Chief Complaint: Abdominal Pain Progress:: Improved - Transfer of Care Expected Disposition: Discharge Plan - Plan Plan: Repeat US and B-hCT on Tuesday! Departure - Departure Clinical Impression: Abdominal pain Qualifiers: Abdominal location: right lower quadrant Qualified Code(s): R10.31 - Right lower quadrant pain Ovarian cyst Qualifiers: Laterality: right Qualified Code(s): N83.201 - Unspecified ovarian cyst, right side Qualifiers: Weeks of gestation: unspecified Qualified Code(s): Z33.1 - state, incidental Disposition: Home self-care Condition: Stable Instructions: Care, Abdominal Pain During , Ectopic , Form - Excuse from Work, School, or Physical Activity Additional Instructions: Please return to Tuesday to repeat Ultrasound and Lab Test (B-hCG). If your condition worsen or you develop any bleeding return to the ER or call 911 Services. Referrals: Liu Schreiber DO [Primary Care Provider] -
[2016-10-01 11:28] VITALS: BP 107/71
== END 2016-10-01 11:20 | disposition home or self-care (01) ==
LOC: ER 09:02
DX: N83.201 Unspecified ovarian cyst, right side (principal); R10.31 Right lower quadrant pain; Z33.1 Pregnant state, incidental; F17.210 Nicotine dependence, cigarettes, uncomplicated

== ENCOUNTER 2016-10-03 10:21 | Emergency (ER) | payer OTHER ==
[2016-10-03 10:43] VITALS: BP 131/78
--- OUTSIDE RECORDS SUMMARY | 2016-10-03 10:44 | XMS REPORT | Continuity of Care Document ---
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
--- NOTE | 2016-10-03 11:08 | ERNOTE ---
Medical Problem HPI - Narrative Date of Service: 10/03/16 - General Chief Complaint: General Assessment Time Seen by Provider: 10/03/16 10:37 Source: patient Exam Limitations: no limitations - Immun/Allergies/Home Medications Immunizations: IMMUNIZATION HX Immunizations Up to Date Yes History of Influenza Vaccine Yes Hx Pneumococcal Vaccination No Allergies/Adverse Reactions: Allergies ketorolac tromethamine [From Toradol] Allergy (Verified 10/03/16 10:43) swelling, itching, rash oxycodone Adverse Reaction (Verified 10/03/16 10:43) nausea and vomitting Home Medications: HOME MEDICATIONS Metoprolol Tartrate [Lopressor] 25 mg PO DAILY 06/26/16 [Last Taken Unknown] - Pain Score Pain Score #1 Pain Score: 6 - History of Present History Narrative: Patient is a 26 year old female with history of multiple pregnancies and miscarriages who presents to the ED for quant and US follow up after being seen by physician here. Patient was seen here in the ED on 10/01 and diagnosed with abdominal pain, ovarian cyst and . Was told to return Tuesday to repeat US and assess quant level to rule out ectopic . Patient is A4 who states her LMP 08/20/16 by home tests and confirmed Tuesday in ED. States she has been having constant, progressively worsening right sided pain since Tuesday morning. States pain woke her up 0445 and has been progressively becoming more intense. Complains of nausea, no fever, chills, body aches, dysuria/painful urination or vaginal bleeding or discharge. States pain is localized to right side without radiation. Was able to eat breakfast this morning without NVD. Date (Duration): 10/01/16 Time (Timing): 04:45 Timing: constant, getting worse Severity: moderate Modifying Factors - (Improves): Present: other - rest and heating pad Modifying Factors - (Worsens): Present: movement Review of Systems - Review of Systems Constitutional: Present: no symptoms reported. Absent: recent illness, fever, chills, diaphoresis, fatigue, malaise, weight loss EYE: Present: no symptoms reported ENT: Present: no symptoms reported Respiratory: Present: no symptoms reported. Absent: shortness of breath, cough , orthopnea, wheezing Cardiology: Present: no symptoms reported. Absent: chest pain, palpitations, edema Gastrointestinal/Abdominal: Present: nausea, abdominal pain - localized to right side. Absent: vomiting, diarrhea, constipation, eating less, drinking less Genitourinary: Present: no symptoms reported. Absent: pain, dysuria, hematuria , discharge Musculoskeletal: Present: no symptoms reported Neurological: Present: no symptoms reported. Absent: headache, dizziness/light- headedness Endocrine: Present: no symptoms reported Hematologic/Lymphatic: Present: no symptoms reported Psych: Present: no symptoms reported - Patient's Past Medical History Patient History - Medical: Anxiety, Bipolar, Depression Patient History - Cardiac/Respiratory: Other Patient History - Cancer: No Hx of Cancer Patient History - Surgical Procedures: , D & C, T & A Patient History - Other: None LMP (females 10-50): 1 month - Family History Mother Family History - Medical: Other Family History - Cardiac/Respiratory: CHF Grandmother-Maternal Family History - Medical: No pertinent hx Family History - Cardiac/Respiratory: No pertinent hx Multiple uncles Family History - Medical: No pertinent hx Family History - Cardiac/Respiratory: No pertinent hx - Social History Living Situations: significant other Abuse History: No History of abuse Psych History: Hx of Anxiety, Hx of Depression, Hx of Bipolar Disorder Does anyone smoke in the home?: Yes Smoking Status: Current every day smoker Have you smoked in the past 12 months: Yes Do you dip or chew tobacco: No Alcohol Use: none Drug Use: none - Immunizations Immunizations Up to Date: Yes Hx Pneumococcal Vaccination: No History of Influenza Vaccine: Yes Physical Exam - Physical Exam General Appearance: Present: wd/wn, alert, no apparent distress, cheerful Eye Exam: Normal inspection: bilateral, PERRL: bilateral Ears, Nose, Throat: Present: normal pharynx. Absent: dry mucous membranes Neck: Present: normal inspection, nontender, supple, full range of motion Respiratory: Present: no respiratory distress, normal breath sounds, no accessory muscle use, chest nontender, lungs clear Cardiovascular/Chest: Present: regular rate, rhythm, no murmur, normal peripheral pulses Gastrointestinal/Abdominal: Present: normal bowel sounds, nondistended, soft, no organomegaly, other - tenderness to RLQ' Rectal Exam: Present: deferred Back Exam: Present: normal inspection, normal range of motion, no CVA tenderness , no vertebral tenderness Extremity Exam: Present: normal inspection, non-tender, normal range of motion, no edema Neurological Exam: Present: alert, oriented, normal mood/affect, no motor/ sensory deficits Skin Exam: Present: normal color, warm/dry Lymphatic Exam: Present: no adenopathy ED Progress - Results and Orders Patient's Lab Results:: I have reviewed the patient's lab results. - Vital Signs Patient's Vital Signs:: I have reviewed the patient's vital signs. Vital Signs: Vital Signs 10/03/16 10:38 Temperature 37.3 C Pulse Rate 97 Respiratory 14 Rate Blood Pressure 131/78 O2 Sat by Pulse 97 Oximetry - CT/Ultrasound CT/Ultrasound Narrative: No confirmed IUP, small irregular fluid collection in endometrial canal. Complex left ovarian 2.0 cm cyst poss corpus luteal cyst but ectopic preg not excluded. No directly visualized ectopic and no free fluid - Progress/Reassessment Chief Complaint: General Assessment Progress:: Unchanged Progress Note-Subjective: 10/03/16 12:30 Discussed quant finding and patient history with Dr Vela. Patient has no history of ectopic pregnancies yet history of right ovarian cyst. 2 C section and [address] Vela suggested pelvic US to rule out ectopic vs cyst vs mass. Patient updated and testing ordered 10/03/16 15:[address] Vela regarding US findings. Discussed findings and was told that it was a probable IUP yet too early to tell. Recommended ruling out appy. Discussed wtih Dr Milian conversation with Dr Vela. White count Fri WNL, patient continues to deny NVD. Continues to deny fever or migration of pain. Gave patient option of drawing further labs or discharging to home and returning if symptoms worsened new symptoms arose. Patient stated she felt comfortable going home and verbalized understanding of s/s of possibly appy including NVD, fever, migration of pain, worsening of pain and also verbalized understanding of returning if vaginal cramping/discharge/bleeding occurs Departure - Departure Clinical Impression: Qualifiers: Weeks of gestation: less than 8 weeks Qualified Code(s): Z3A.01 - Less than 8 weeks gestation of Ovarian cyst Qualifiers: Laterality: left Qualified Code(s): N83.202 - Unspecified ovarian cyst, left side Disposition: Home Follow Up Needed Condition: Good Instructions: First Trimester of , [id number], Care Additional Instructions: Return to ED immediately if pain worsens or changes locations, nausea, vomiting , fever, vaginal bleeding/discharge occurs. Keep follow up appointment with OBGYN physician on October 12.
== END 2016-10-03 15:51 | disposition home or self-care (01) ==
LOC: ER 10:21
DX: N83.202 Unspecified ovarian cyst, left side (principal); Z3A.01 Less than 8 weeks gestation of pregnancy; Z33.1 Pregnant state, incidental; Z72.0 Tobacco use

== ENCOUNTER 2016-10-10 08:22 | Emergency (ER) | payer OTHER ==
--- OUTSIDE RECORDS SUMMARY | 2016-10-10 08:37 | XMS REPORT | Continuity of Care Document ---
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
[2016-10-10 08:51] LABS: Hematocrit 37.4 % (37.0-47.0); Hemoglobin 12.5 gm/dL (12.5-16.0); Mean Cell Volume 88.8 fl (78-100); Mean Corpuscular Hemoglobin 29.7 pg (27-31); Mean Corpuscular Hgb Conc 33.4 g/dl (32-36); Mean Platelet Volume 9.8 fl (6.0-9.5); Neutrophil # 1.9 K/mm3 (1.3-6.0); Neutrophil % 47.9 % (42-75.0); Platelet Count 253 K/mm3 (150-450); Red Blood Count 4.21 M/mm3 (4.2-5.4); Red Cell Distribution Width 12.1 % (11.5-14.0)
--- NOTE | 2016-10-10 08:54 | ERNOTE ---
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 She stated that when she went to the bathroom there was a small amount of spotting that was present then as well. Patient denies any complaints at this time. Timing: Present: gone now Quality: Present: mild, cramping Onset Location: Present: suprapubic Radiation: Present: none Activities at Onset: Present: physical activity Sexual [place] History: Present: single partner Review of Systems - Review of Systems Constitutional: Present: no symptoms reported EYE: Present: no symptoms reported ENT: Present: no symptoms reported Respiratory: Present: no symptoms reported Cardiology: Present: no symptoms reported Gastrointestinal/Abdominal: Present: no symptoms reported Genitourinary: Present: no symptoms reported Musculoskeletal: Present: no symptoms reported Skin: Present: no symptoms reported Neurological: Present: no symptoms reported Endocrine: Present: no symptoms reported Hematologic/Lymphatic: Present: no symptoms reported Psych: Present: no symptoms reported - Patient's Past Medical History Patient History - Medical: Anxiety, Bipolar, Depression Patient History - Cardiac/Respiratory: Other Patient History - Cancer: No Hx of Cancer Patient History - Surgical Procedures: , D & C, T & A Patient History - Other: None Additional Info: A4 LMP (females 10-50): 2 months LMP (Calendar): 08/20/16 - Family History Mother Family History - Medical: Other Family History - Cardiac/Respiratory: CHF Grandmother-Maternal Family History - Medical: No pertinent hx Family History - Cardiac/Respiratory: No pertinent hx Multiple uncles Family History - Medical: No pertinent hx Family History - Cardiac/Respiratory: No pertinent hx - Social History Living Situations: significant other Abuse History: No History of abuse Psych History: Hx of Anxiety, Hx of Depression, Hx of Bipolar Disorder Does anyone smoke in the home?: Yes Alcohol Use: none Drug Use: none - Immunizations Immunizations Up to Date: Yes Hx Pneumococcal Vaccination: No History of Influenza Vaccine: Yes Physical Exam - Physical Exam General Appearance: Present: wd/wn, alert, no apparent distress Eye Exam: Normal inspection: bilateral, PERRL: bilateral Ears, Nose, Throat: Present: normal ENT inspection, H, normal pharynx Neck: Present: normal inspection, nontender Respiratory: Present: no respiratory distress, normal breath sounds, no accessory muscle use, chest nontender, lungs clear Cardiovascular/Chest: Present: regular rate, rhythm, no murmur, normal peripheral pulses Gastrointestinal/Abdominal: Present: normal bowel sounds, nontender, nondistended, soft, no organomegaly Rectal Exam: Present: deferred Back Exam: Present: normal inspection, normal range of motion Extremity Exam: Present: normal inspection, non-tender, no edema, normal range of motion Neurological Exam: Present: alert, oriented, normal mood/affect Skin Exam: Present: normal color, warm/dry Lymphatic Exam: Present: no adenopathy Pelvic Exam: Present: other - pt declined, as she has an appt with her OB in 2 days and she just had one in the past week ED Progress - Results and Orders Patient's Lab Results:: I have reviewed the patient's lab results. - Vital Signs Patient's Vital Signs:: I have reviewed the patient's vital signs. Vital Signs: Vital Signs 10/10/16 10/10/16 08:28 08:43 Temperature 36.5 C Pulse Rate 100 93 Respiratory 12 12 Rate Blood Pressure 130/69 103/65 O2 Sat by Pulse 97 Oximetry - Progress/Reassessment Chief Complaint: OB Screening Plan - Plan Plan: Patient was offered a pelvic exam and she declined at this point stating that she just had one and that she has no appointment to see her OB in 2 days. She was given the results of her quantitative hCG test and she understands that most likely in 2 days, if all things go as expected, her quantitative hCG should be at the level where we could start to see whether or not there is a gestational sac present in the uterus. Departure Clinical Impression: First trimester bleeding - Departure Disposition: Home self-care Condition: Good Instructions: Vaginal Bleeding During , First Trimester
[2016-10-10 09:43] VITALS: BP 118/81
== END 2016-10-10 09:45 | disposition home or self-care (01) ==
LOC: ER 08:22
DX: O20.9 Hemorrhage in early pregnancy, unspecified (principal); Z3A.00 Weeks of gestation of pregnancy not specified; Z57.31 Occupational exposure to environmental tobacco smoke

== ENCOUNTER 2016-10-19 18:41 | Emergency (ER) | payer OTHER ==
--- NOTE | 2016-10-19 18:56 | ERNOTE ---
ER Female HPI Date of Service: 10/19/16 Stated Complaint: 6 WEEKS PREG, BLEEDING Presenting Symptoms: vaginal bleeding Time Seen by Provider: 10/19/16 18:55 Source: patient, RN notes reviewed, past records Exam Limitations: no limitations Immunizations: IMMUNIZATION HX Immunizations Up to Date Yes History of Influenza Vaccine Yes Hx Pneumococcal Vaccination No Allergies/Adverse Reactions: Allergies ketorolac tromethamine [From Toradol] Allergy (Verified 10/10/16 08:37) swelling, itching, rash oxycodone Adverse Reaction (Verified 10/10/16 08:37) nausea and vomitting Home Medications: HOME MEDICATIONS Comb No.42/Folic Acid [Prena1 Chew Tablet] 1.4 mg PO DAILY 10/19/16 [ Last Taken Unknown] - History of Present Illness Narrative: 26 y/o female ambulatory to the ED for increased cramping and vaginal bleeding. She is approximately 6 weeks . She contacted her OB today to make sure she should go to work. 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 She was instructed to go ahead and work. She believes that increased activity and lifting worsened her symptoms. She states that her bleeding is heavier than just spotting, but not as heavy as her usual period. She saw her OB on 10/12/16. Her US at that time showed a single interuterine of uncertain viability. Her quant was 1243 that day. Her blood type is B positive. Review of Systems - Review of Systems Constitutional: Absent: fever, chills EYE: Present: no symptoms reported ENT: Present: no symptoms reported Respiratory: Absent: shortness of breath, cough Cardiology: Absent: chest pain, palpitations, syncope Gastrointestinal/Abdominal: Present: nausea. Absent: vomiting, diarrhea, eating less, drinking less Genitourinary: Absent: dysuria, decreased urinary output Musculoskeletal: Present: no symptoms reported Skin: Present: no symptoms reported Neurological: Absent: headache, dizziness/light-headedness, weakness Endocrine: Present: no symptoms reported Hematologic/Lymphatic: Present: no symptoms reported Psych: Present: no symptoms reported - Patient's Past Medical History Patient History - Medical: Anxiety, Bipolar, Depression Patient History - Cardiac/Respiratory: Other Patient History - Cancer: No Hx of Cancer Patient History - Surgical Procedures: , D & C, T & A Patient History - Other: None LMP (females 10-50): 2 months LMP (Calendar): 08/25/16 - Family History Mother Family History - Medical: Other Family History - Cardiac/Respiratory: CHF Grandmother-Maternal Family History - Medical: No pertinent hx Family History - Cardiac/Respiratory: No pertinent hx Multiple uncles Family History - Medical: No pertinent hx Family History - Cardiac/Respiratory: No pertinent hx - Social History Living Situations: spouse Abuse History: No History of abuse Psych History: Hx of Anxiety, Hx of Depression, Hx of Bipolar Disorder Does anyone smoke in the home?: Yes Smoking Status: Current every day smoker Patient requests Smoking Cessation Consult: No Initiate information on Smoking Cessation: No Alcohol Use: none Drug Use: none - Immunizations Immunizations Up to Date: Yes Hx Pneumococcal Vaccination: No History of Influenza Vaccine: Yes Physical Exam - Physical Exam General Appearance: Present: wd/wn, alert, mild distress, anxious Respiratory: Present: no respiratory distress, normal breath sounds, no accessory muscle use, lungs clear Cardiovascular/Chest: Present: regular rate, rhythm, no murmur, normal peripheral pulses Gastrointestinal/Abdominal: Present: nondistended, soft, tenderness - mild, throughout lower abdomen Back Exam: Present: normal inspection, no CVA tenderness Neurological Exam: Present: alert, oriented, normal mood/affect Skin Exam: Present: normal color, warm/dry ED Progress - Results and Orders Patient's Lab Results:: I have reviewed the patient's lab results. - Vital Signs Patient's Vital Signs:: I have reviewed the patient's vital signs. Vital Signs: Vital Signs 10/19/16 18:47 Temperature 37.4 C Pulse Rate 110 H Respiratory 16 Rate Blood Pressure 142/77 O2 Sat by Pulse 99 Oximetry - Progress/Reassessment Chief Complaint: Genitourinary Problem Progress:: Unchanged Plan - Plan Plan: Quant HCG is up over 3000 today from 1200 a week ago. Patient is very nervous as she has had recurrent losses - she is . Reassured regarding lab results. Lifting restrictions given for her at work. Instructed regarding pelvic rest. Has f/u scheduled with her OB. Departure Clinical Impression: First trimester bleeding - Departure Disposition: Home Follow Up Needed Condition: Stable Instructions: Vaginal Bleeding During , First Trimester, Form - Excuse from Work, School, or Physical Activity Additional Instructions: Return for heavy bleeding = saturating more than a pad per hour or passing clots the size of a lemon or larger Pelvic rest = nothing in the vagina until evaluated by Dr. Schreiber Referrals: Liu Schreiber DO [Primary Care Provider] -
--- OUTSIDE RECORDS SUMMARY | 2016-10-19 19:12 | XMS REPORT | Continuity of Care Document ---
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
[2016-10-19 19:15] LABS: Hematocrit 35.2 % (37.0-47.0); Hemoglobin 12.1 gm/dL (12.5-16.0); Mean Cell Volume 86.1 fl (78-100); Mean Corpuscular Hemoglobin 29.6 pg (27-31); Mean Corpuscular Hgb Conc 34.4 g/dl (32-36); Neutrophil # 2.2 K/mm3 (1.3-6.0); Neutrophil % 46.1 % (42-75.0); Platelet Count 222 K/mm3 (150-450); Red Blood Count 4.09 M/mm3 (4.2-5.4); Red Cell Distribution Width 11.8 % (11.5-14.0); White Blood Count 4.8 K/mm3 (4.0-10.5)
[2016-10-19 21:35] VITALS: BP 127/81
== END 2016-10-19 20:27 | disposition home or self-care (01) ==
LOC: ER 18:41
DX: O26.851 Spotting complicating pregnancy, first trimester (principal); Z3A.01 Less than 8 weeks gestation of pregnancy; F17.210 Nicotine dependence, cigarettes, uncomplicated

== ENCOUNTER 2016-10-25 12:25 | Emergency (ER) | payer OTHER ==
--- NOTE | 2016-10-25 12:50 | ERNOTE ---
ER Female HPI Date of Service: 10/25/16 Stated Complaint: 7 WKS , BLEEDING Presenting Symptoms: pelvic pain, vaginal bleeding Time Seen by Provider: 10/25/16 12:40 Source: patient Exam Limitations: no limitations Immunizations: IMMUNIZATION HX Immunizations Up to Date Yes History of Influenza Vaccine Yes Hx Pneumococcal Vaccination No Allergies/Adverse Reactions: Allergies ketorolac tromethamine [From Toradol] Allergy (Verified 10/25/16 12:33) swelling, itching, rash oxycodone Adverse Reaction (Verified 10/25/16 12:33) nausea and vomitting Home Medications: HOME MEDICATIONS Comb No.42/Folic Acid [Prena1 Chew Tablet] 1.4 mg PO DAILY 10/19/16 [ Last Taken Unknown] Misoprostol [Cytotec] 600 mcg PO Q3H PRN #9 tablet 10/25/16 [Last Taken Unknown] - History of Present Illness Narrative: Pt. comes in with c/o heavy vaginal bleeding today since 0230 pt has had recent episodes of bleeding and is 7 weeks on previous US there has not been a pole or gest sac. Pt. states that she is changing a pad an hour and passing golfball size clots. Pt. also states that she has severe pelvic cramping. Pt. states that she has had her B HCG checked and it is going up. Pt. is and that this feels the same as previous miscarriages. Review of Systems - Review of Systems Constitutional: Present: no symptoms reported. Absent: recent illness, fever, chills, weakness, fatigue, malaise EYE: Present: no symptoms reported ENT: Present: no symptoms reported Respiratory: Present: no symptoms reported. Absent: shortness of breath, cough , wheezing Cardiology: Present: no symptoms reported. Absent: chest pain, palpitations, edema Gastrointestinal/Abdominal: Present: abdominal pain - suprapubic. Absent: nausea, vomiting, diarrhea Genitourinary: Present: pain - pelvic, discharge - blood Musculoskeletal: Present: no symptoms reported. Absent: back pain, joint pain Skin: Present: no symptoms reported. Absent: rash, change in hair/nails Neurological: Present: no symptoms reported. Absent: headache, dizziness/light- headedness, numbness, tingling All Other Systems: All systems neg except as marked - Patient's Past Medical History Patient History - Medical: Anxiety, Bipolar, Depression Patient History - Cardiac/Respiratory: Other Patient History - Cancer: No Hx of Cancer Patient History - Surgical Procedures: , D & C, T & A Patient History - Other: None LMP (Calendar): 08/25/16 - Family History Mother Family History - Medical: Other Family History - Cardiac/Respiratory: CHF Grandmother-Maternal Family History - Medical: No pertinent hx Family History - Cardiac/Respiratory: No pertinent hx Multiple uncles Family History - Medical: No pertinent hx Family History - Cardiac/Respiratory: No pertinent hx - Social History Living Situations: home Abuse History: No History of abuse Psych History: Hx of Anxiety, Hx of Depression, Hx of Bipolar Disorder Does anyone smoke in the home?: Yes Alcohol Use: none Drug Use: none - Immunizations Immunizations Up to Date: Yes Hx Pneumococcal Vaccination: No History of Influenza Vaccine: Yes Physical Exam - Physical Exam General Appearance: Present: wd/wn, alert, no apparent distress Eye Exam: Normal inspection: bilateral, PERRL: bilateral, EOMI: bilateral Ears, Nose, Throat: Present: normal ENT inspection, normal pharynx Neck: Present: normal inspection, nontender. Absent: lymphadenopathy (R), lymphadenopathy (L) Respiratory: Present: no respiratory distress, normal breath sounds, no accessory muscle use, chest nontender, lungs clear Cardiovascular/Chest: Present: regular rate, rhythm, no murmur, normal peripheral pulses Gastrointestinal/Abdominal: Present: normal bowel sounds, tenderness - suprapubic Neurological Exam: Present: alert, oriented, normal mood/affect, no motor/ sensory deficits Pelvic Exam: Present: active bleeding ED Progress - Date and Time Seen: Date and Time: 10/25/16 15:[address] Schreiber and we will have pt. take 600mcg of Cytotec SL as needed for heavy bleeding for up to 3 doses every 3 hours and have her follow up with him in 1-2 weeks. - Results and Orders Patient's Lab Results:: I have reviewed the patient's lab results. - Vital Signs Patient's Vital Signs:: I have reviewed the patient's vital signs. Vital Signs: Vital Signs 10/25/16 12:30 Temperature 36.7 C Pulse Rate 107 H Respiratory 12 Rate Blood Pressure 129/81 O2 Sat by Pulse 98 Oximetry - CT/Ultrasound CT/Ultrasound Narrative: US without gestational sac - Progress/Reassessment Chief Complaint: Genitourinary Problem Departure Clinical Impression: Miscarriage - Departure Disposition: Home self-care Condition: Good Instructions: Miscarriage, [id number], Pelvic Rest Additional Instructions: Please follow up with OB in 1-2 weeks and may take the ordered dose of cytotec up to 3 times, three hours apart for soaking of a pad more than one every 2 hours. Prescriptions: Misoprostol [Cytotec] 600 mcg PO Q3H PRN #9 tablet PRN Reason: Bleeding
[2016-10-25 12:56] LABS: Hematocrit 34.5 % (37.0-47.0); Hemoglobin 11.8 gm/dL (12.5-16.0); Mean Cell Volume 87.3 fl (78-100); Mean Corpuscular Hemoglobin 29.9 pg (27-31); Mean Corpuscular Hgb Conc 34.2 g/dl (32-36); Mean Platelet Volume 10.1 fl (6.0-9.5); Neutrophil # 1.9 K/mm3 (1.3-6.0); Neutrophil % 58.3 % (42-75.0); Platelet Count 210 K/mm3 (150-450); Red Blood Count 3.95 M/mm3 (4.2-5.4); White Blood Count 3.3 K/mm3 (4.0-10.5)
--- OUTSIDE RECORDS SUMMARY | 2016-10-25 13:03 | XMS REPORT | Continuity of Care Document ---
:1990 Author Organization [facility] [place] [address] Care Team Providers Name Role Phone Pranav Atkinson Primary Care Provider [phone] Source Comments This disclosure is being made pursuant to the [employer] program and contain all information available regarding this patient.[facility] Active Allergies and Adverse Reactions Allergen Noted [...] Recent Encounters Date Type Specialty Providers Description 10/21/2016 Telephone Obstetrics and Ally Robert MD Threatened Miscarriage Gynecology Immunizations Name Dates Previously Given Next Due [...] 1.651 m (5' 5") 04/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
[2016-10-25 13:14] LABS: Albumin * 3.6 gm/dl (3.4-5.0); Anion Gap 15.2 mmol/L (6.8-13.8); BUN/Creatinine Ratio 15.4 (9.0-21.6); Bilirubin, Total 0.4 mg/dL (0.0-1.1); Ca. Corrected For Albumin 8.8 mg/dL (8.4-10.2); Calcium * 8.8 mg/dL (7.9-10.9); Carbon Dioxide 24.5 mmol/L (24-32.6); Potassium 3.7 mmol/L (3.4-4.6); Total Protein 7.3 gm/dL (6.2-8.2)
[2016-10-25 15:41] VITALS: BP 139/85
== END 2016-10-25 15:22 | disposition home or self-care (01) ==
LOC: ER 12:25
DX: O03.9 Complete or unspecified spontaneous abortion without complication (principal)

== ENCOUNTER 2017-03-24 15:55 | Emergency (ER) | payer OTHER ==
[2017-03-24 16:01] VITALS: BP 146/83
--- NOTE | 2017-03-24 16:08 | ERNOTE ---
Lower Extremity HPI - General Lower Extremities Pain: foot: left Time Seen by Provider: 03/24/17 16:04 Source: patient, family Exam Limitations: no limitations - Immun/Allergies/Home Medications Immunizations: IMMUNIZATION HX Immunizations Up to Date Yes History of Influenza Vaccine Yes Hx Pneumococcal Vaccination No Allergies/Adverse Reactions: Allergies Allergy/AdvReac Type Severity Reaction Status Date / Time ketorolac tromethamine AdvReac Mild swelling, Verified 03/24/17 16:01 [From Toradol] itching, rash oxycodone AdvReac Mild nausea and Verified 03/24/17 16:01 vomitting Home Medications: HOME MEDICATIONS Naproxen [Naprosyn] 500 mg PO BID #60 tablet 03/24/17 [Last Taken Unknown] Tramadol HCl [Rybix Odt] 50 mg PO Q46H 03/24/17 [Last Taken Unknown] - History of Present Illness Narrative: Patient denies any known injury however she has pain on the left heel around the area of the insertion of the plantar fascia into the calcaneus. The pain is moderate in severity and is having some difficulty with weightbearing. Occurred: other - increasing intensity over the past few days Method of Injury: Reports: no apparent injury Loss of Consciousness: Reports: no loss of consciousness Associated Symptoms: Reports: other injuries - painful weightbearing Other Injuries: Reports: none Review of Systems - Review of Systems Constitutional: Present: See HPI EYE: Present: no symptoms reported ENT: Present: no symptoms reported Respiratory: Present: no symptoms reported Cardiology: Present: no symptoms reported Gastrointestinal/Abdominal: Present: no symptoms reported Genitourinary: Present: no symptoms reported Musculoskeletal: Present: See HPI Skin: Present: no symptoms reported Neurological: Present: no symptoms reported Endocrine: Present: no symptoms reported Hematologic/Lymphatic: Present: no symptoms reported Psych: Present: no symptoms reported - Patient's Past Medical History Patient History - Medical: Anxiety, Bipolar, Depression Patient History - Cardiac/Respiratory: Other Patient History - Cancer: No Hx of Cancer Patient History - Surgical Procedures: , D & C, T & A Patient History - Other: None - Family History Mother Family History - Medical: Other Family History - Cardiac/Respiratory: CHF Grandmother-Maternal Family History - Medical: No pertinent hx Family History - Cardiac/Respiratory: No pertinent hx Multiple uncles Family History - Medical: No pertinent hx Family History - Cardiac/Respiratory: No pertinent hx - Social History Living Situations: home Abuse History: No History of abuse Psych History: Hx of Anxiety, Hx of Depression, Hx of Bipolar Disorder Alcohol Use: none Drug Use: none - Immunizations Immunizations Up to Date: Yes Hx Pneumococcal Vaccination: No History of Influenza Vaccine: Yes Physical Exam - Physical Exam General Appearance: Present: wd/wn, alert, moderate distress Eye Exam: Normal inspection: bilateral, PERRL: bilateral Ears, Nose, Throat: Present: normal ENT inspection, H, normal pharynx Neck: Present: normal inspection, nontender Respiratory: Present: no respiratory distress, normal breath sounds, no accessory muscle use, chest nontender, lungs clear Cardiovascular/Chest: Present: regular rate, rhythm, no murmur, normal peripheral pulses Gastrointestinal/Abdominal: Present: normal bowel sounds, nontender, nondistended, soft, no organomegaly Rectal Exam: Present: deferred Back Exam: Present: normal inspection, normal range of motion Extremity Exam: Present: normal range of motion, no edema, bony tenderness Neurological Exam: Present: alert, oriented, normal mood/affect Skin Exam: Present: normal color, warm/dry Lymphatic Exam: Present: no adenopathy ED Progress - Vital Signs Patient's Vital Signs:: I have reviewed the patient's vital signs. Vital Signs: Vital Signs 03/24/17 15:58 Temperature 36.2 C L Pulse Rate 91 Respiratory 12 Rate Blood Pressure 146/83 O2 Sat by Pulse 98 Oximetry - X-Ray X-Ray #1 X-Ray: foot Interpretation: Reviewed by me - Progress/Reassessment Chief Complaint: Foot Injury/Pain Plan - Plan Plan: Patient does have a calcaneal spur present and appears to have some inflamed tendinitis around that spur area. She states that she takes both Aleve and ibuprofen at home so she'll be given a prescription for Naprosyn and she'll follow-up with her family physician as needed Departure Clinical Impression: Plantar fasciitis Heel spur Qualifiers: Laterality: left Qualified Code(s): M77.32 - Calcaneal spur, left foot - Departure Disposition: Home self-care Condition: Good Instructions: Tendinitis, [id number], Heel Spur Prescriptions: Naproxen [Naprosyn] 500 mg PO BID #60 tablet
== END 2017-03-24 16:25 | disposition home or self-care (01) ==
LOC: ER 15:55
DX: M72.2 Plantar fascial fibromatosis (principal); M77.32 Calcaneal spur, left foot

== ENCOUNTER 2018-03-17 03:48 | Inpatient (IN) ==
[~2018-03-17 03:48] MED LIST: IRON SUCROSE COMPLEX 500 MG in NORMAL SALINE 250 ML IV ONE
[2018-03-17] MEDS ORDERED: CITRIC ACID/SODIUM CITRATE 60 ML BTL PO ONE ×2 (03:55→05:20)
[2018-03-17] MEDS ORDERED: ceFAZolin SODIUM 3 GM in DEXTROSE 5 % IN WATER 100 ML IV ONE ×2 (03:55)
[2018-03-17] MEDS ORDERED: OXYTOCIN 20 UNITS in RINGER'S SOLUTION,LACTATED 1,000 ML IV ONE (03:55)
[2018-03-17] MEDS ORDERED: FAMOTIDINE 20 MG in DEXTROSE 5 % IN WATER 100 ML IV ONE ×2 (03:55)
[2018-03-17] MEDS ORDERED: METOCLOPRAMIDE HCL 5 MG/ML VIAL IV ONE (03:55)
[2018-03-17] MEDS: RINGER'S SOLUTION,LACTATED 1,000 ML IV PRN ×3 (05:06→08:00)
--- NOTE | 2018-03-17 06:39 | ANES ---
Anesthesia Pre Procedure Eval Vitals/Labs: Last Vital Signs Temp 36.7 C 03/17/18 05:43 Pulse 115 H 03/17/18 05:43 Resp 20 03/17/18 05:43 BP 124/81 03/17/18 05:43 Pulse Ox 97 03/17/18 05:43 HOME MEDICATIONS Vits96/Iron Fum/Folic [ S] 1 tab PO DAILY 01/25/18 [Last Taken 03/16/18] ranitidine 150 mg tablet 150 mg PO BID PRN #60 tab 03/13/18 [Last Taken 03/16/18] Allergies/Adverse Reactions: Allergies Allergy/AdvReac Type Severity Reaction Status Date / Time ketorolac tromethamine AdvReac Mild swelling, Verified 03/16/18 09:30 [From Toradol] itching, rash oxycodone AdvReac Mild nausea and Verified 03/16/18 09:30 vomitting - Planned Procedure Planned Procedure: Section with Bilateral Salpingectomy Medication List Reviewed:: Yes Allergies Verified: Yes Medical History (Last Reviewed 01/02/18 @ 15:55 by Ba Barclay RN) Anemia Onset Date: Unknown Bipolar disorder Onset Date: Unknown Blighted ovum Onset Date: 04/17/15 delivery delivered Onset Date: ~2014 History of delivery Onset Date: 10/13/16 Miscarriage Onset Date: Unknown Ovarian cyst Onset Date: Unknown Tachycardia Onset Date: ~09/2015 Trichomoniasis Onset Date: Unknown [place] teeth extracted Onset Date: ~08/2016 Surgical History (Last Reviewed 01/02/18 @ 15:55 by Ba Barclay RN) H/O adenoidectomy Onset Date: Unknown History of dilation and curettage Onset Date: 02/11/16 History of tonsillectomy Onset Date: Unknown Family History (Last Reviewed 01/02/18 @ 15:55 by Ba Barclay RN) Brother Asthma Father Hyperlipemia Mother CHF (congestive heart failure) Graves' disease Fibromyalgia Palpitations Sister Hypothyroidism Asthma Anxiety - Family Anesthesia History Family History:: no untoward family reactions to anesthesia, no familial bleeding tendencies, no family history of clotting disorders, no family history of premature - Airway/Neck/Teeth Within Normal Limits:: Yes Teeth Condition: Intact Mallampatti Score: 1 Thyromental (T-M) distance: > 6 cm Mandibulo Hyoid distance: > 3 cm - Respiratory Respiratory: lungs clear Smoking Status: Former smoker Discussed smoking cessation including day of surgery: No Sleep Apnea currently treated: No Sleep Apnea by current assessment: No Discussed Risks/Treatment of ANALI: No - Cardiovascular Tolerates Activity: Good Heart Sounds: S1 & S2, Regular - Anesthesia Assessment and Plan ASA Class: PS, II Anesthesia Type Plan: Block - Bilateral ultrasound guided TAP block for postop analgesia, Spinal
[2018-03-17] MEDS ORDERED: diphenhydrAMINE HCL 25 MG CAPSULE PO PRN (09:20)
[2018-03-17] MEDS ORDERED: ONDANSETRON HCL/PF 2 MG/ML VIAL IV PRN (09:20)
[2018-03-17] MEDS ORDERED: BISACODYL 10 MG SUPP.RECT RC PRN (09:20)
[2018-03-17] MEDS ORDERED: SENNOSIDES 8.6 MG TABLET PO PRN (09:20)
[2018-03-17] MEDS ORDERED: HYDROcodone/ACETAMINOPHEN 1 EACH TABLET PO PRN (09:20)
[2018-03-17] MEDS ORDERED: RINGER'S SOLUTION,LACTATED 1,000 ML IV ONE (09:20)
[2018-03-17] MEDS ORDERED: SIMETHICONE 80 MG TAB.CHEW PO PRN (09:20)
[2018-03-17] MEDS ORDERED: diphenhydrAMINE HCL 50 MG/ML VIAL IV PRN (09:26)
[2018-03-17] MEDS ORDERED: PROCHLORPERAZINE EDISYLATE 5 MG/ML VIAL IV PRN (09:26)
[2018-03-17] MEDS ORDERED: NALOXONE HCL 0.4 MG/ML VIAL IV PRN (09:26)
[2018-03-17] MEDS ORDERED: HYDROmorphone HCL 2 MG/ML VIAL IV PRN (09:26)
--- NOTE | 2018-03-17 09:28 | ANES ---
Post Anesthesia Discharge - Transfer of Care Transfer of Care handoff given to nurse: Yes - Discharge from PACU Discharge from PACU when meets criteria: Yes - Discharge to ASU Discharge to ASU-no complications/pt stable: Yes
--- NOTE | 2018-03-17 09:29 | ANES ---
Anesthesia Procedure Note Procedure Note: ANESTHESIA PROCEDURE NOTE Date of Procedure: 02/15/2018. Time of procedure: 914. Performed by: Antoine Hyatt CRNA Tractor Operator Laser Leveling: None. Preprocedure diagnosis: Repeat . Post procedure diagnosis: Same. Procedure: Bilateral ultrasound-guided transversus abdominis plane block for postop analgesia. Indications: The patient is a 27 -year-old female post section. Findings: See below. Details of the procedure: ChloraPrep was used on the patient's abdomen and the procedure was performed under sterile technique. The right abdominal fascial layer between the internal oblique muscle and the transversus abdominis muscles was identified under ultrasound guidance. A 21-gauge 4 inch block needle was inserted under ultrasound guidance to the target fascial plane. 15 mL's of 0.5% bupivacaine plus epinephrine 1:200,000 was injected after negative aspiration for blood. The needle was removed intact and the procedure was then repeated at the left side. No complications were noted. The images were retained in the hospital medical database . EBL: Minimal. Fluids: N/A. Specimen: N/A. Post procedure condition: The patient tolerated the procedure well. No complications were noted. Thank you for this consultation. Antoine Hyatt CRNA
--- NOTE | 2018-03-17 09:33 | OR ---
Operative Report - Dictated Report Narrative: DATE OF PROCEDURE: 03/17/2018 PROCEDURE: 1. Repeat low transverse section and bilateral salpingectomies ANESTHESIA: Spinal. PREOPERATIVE DIAGNOSES: 1. Intrauterine at 37 1/7 weeks 2. Previous c-sections x 2 3. Preeclampsia without severe features 4. Obesity BMI 35.6 POSTOPERATIVE DIAGNOSES: 1. Intrauterine at 37 1/7 weeks 2. Previous c-sections x 2 3. Preeclampsia without severe features 4. Obesity BMI 35.6 SURGEON: Yamilex Vela M.D. CLUTCH MECHANIC: Dr. Correa FINDINGS: 1. Male in cephalic presentation. clear amniotic fluid. Weight 3216 g, 9/10, Time of delivery: 08:05 2. Normal uterus, and normal bilateral ovaries and tubes 3. Omental adhesions to the anterior abdominal wall. SPECIMENS: none DRAIN: Ross to gravity. URINE OUTPUT: 200 ml. BLOOD LOSS: 400 ml. IV FLUIDS: 2000 ml COMPLICATIONS: None. Description of Operative Procedure: The patient consented prior to the operation and was taken to the operating room. Spinal anesthesia was performed without complications. The patient was the n placed in the dorsal supine position with leftward tilt. Sequential compression device was placed on the lower extremities and a Ross catheter was placed into the bladder using sterile technique. Three grams of Ancef was given prior to the start of anesthesia. The abdomen was prepped with Chloraprep and draped in the usual sterile fashion. A time-out procedure was conducted to confirm the correct patient for the correct procedure. Anesthesia was tested and appeared adequate. A Pfannenstiel incision was marked and the skin was incised with a scalpel. The incision was carried through the subcutaneous layer to the fascia. The fascia was nicked in the midline and extended laterally with Segura scissors. The upper edge of the fascia incision was grasped with two Ricky clamps, elevated, and the underlying rectus muscles were dissected off. The Ricky clamps were repositioned to the lower edge of the fascia incision, which was tented up and dissected off from the rectus muscles. The rectus muscles were bluntly. The peritoneum was entered bluntly with a finger. There were omental adhesions to the anterior abdominal wall and there were lysed with the Bovie. The peritoneal incision was extended superiorly and inferiorly with good visualization of the bladder. The vesicouterine peritoneum was identified, grasped with a smooth pick-ups, and entered sharply with Matzenbaum scissors. The incision was extended laterally, and a bladder flap was created. An Nathan- O self retaining retractor was placed. The lower uterine segment was incised in a transverse fashion with the scalpel. The incision was extended laterally by stretching. The amniotic sac was ruptured with clear fluid. The baby was in cephalic presentation. The head was elevated through the incision. Fundal p ressure was applied and the baby was delivered atraumatically. Baby cried immediately after . The cord was clamped and cut. The baby was handed off to the instant potato processor and nurse in attendance. Cord blood was obtained. The placenta was removed manually. The uterus was exteriorized, and cleared off clots and membrane. The uterine incision was closed with 0 vicryl in a running- lock fashion with good hemostasis and reapproximation. Attention was turned to the right fallopian tube. The right tube was elevated with an Allis clamp. The uterine cornue was cauterized with a Kleppinger. The right tube was divided at the uterine cornue. The mesosalpinx was divided with a Bovie. Area of blood vessel was cauterized with Kleppinger or suture ligation. The right fallopian tube was removed. The same procedure was performed on the left tube. The posterior cul-de-sac was cleared off clots and fluid. The uterus was returned to the abdomen. The gutters were cleared of blood clots and fluid. The fascia was reapproximated with #1 Vicryl in running fashion. The subcutaneous layer was irrigated with saline. The subcutaneous layer was closed with 2-0 vicryl interruptedly. The skin was closed with 3-0 Monocryl suture in a subcuticular fashion. Benzoin was applied to the incision edges. The incision was covered with Steri strips, Telfa, ABD and adhesive pressure dressing tape. The patient tolerated the procedure well. Sponge, lap, needle and instrument counts were correct x 2. The patient was taken to the recovery room in stable condition. Yamilex Vela MD History for MU Definition: * The number of deliveries resulting in a live the patient experienced prior to current hospitalization * The previous delivery of live twins or any live multiple gestation is consi dered one live event. *If primagravida or nulliparous is documented select zero for the number of previous live births. Live Events: 4
[2018-03-17] MEDS: HYDROcodone/ACETAMINOPHEN 1 EACH TABLET PO PRN ×3 (09:59→22:10)
[2018-03-17] MEDS: IBUPROFEN 800 MG TABLET PO PRN ×3 (09:59→22:10)
--- NOTE | 2018-03-17 11:30 | ANES ---
Post Anesthesia Assessment - Vital Signs Vitals: Last Vital Signs Temp 36.8 C 03/17/18 11:00 Pulse 110 H 03/17/18 11:00 Resp 16 03/17/18 11:00 BP 137/67 03/17/18 11:00 Pulse Ox 100 03/17/18 10:07 Airway Patency: Normal - Mental Status Level Of Consciousness: Awake - Pain Level Pain Score: 6 - N/V Assessment Nausea/Vomiting Presence: None Dehydration:: No
[2018-03-17] MEDS: DOCUSATE SODIUM 100 MG CAPSULE PO SCH (21:54)
[2018-03-18] MEDS: HYDROcodone/ACETAMINOPHEN 1 EACH TABLET PO PRN ×7 (01:09→21:09)
[2018-03-18] MEDS: IBUPROFEN 800 MG TABLET PO PRN ×3 (04:16→17:41)
[2018-03-18 06:06] LABS: Hemoglobin 9.3 gm/dL (12.5-16.0); Mean Cell Volume 90.9 fl (78-100); Mean Corpuscular Hemoglobin 31.3 pg (27-31); Mean Corpuscular Hgb Conc 34.4 g/dl (32-36); Mean Platelet Volume 10.9 fl (8-12.5); Neutrophil # 6.5 K/mm3 (1.3-6.0); Neutrophil % 75.1 % (42-75.0); Platelet Count 151 K/mm3 (150-450); Red Blood Count 2.97 M/mm3 (4.2-5.4); White Blood Count 8.6 K/mm3 (4.0-10.5)
[2018-03-18] MEDS: DOCUSATE SODIUM 100 MG CAPSULE PO SCH ×2 (09:11→21:07)
--- NOTE | 2018-03-18 09:47 | PN ---
Subjective - Date and Time Seen Date: 03/18/18 Time: 09:45 Subjective Narrative: Pt without complaints Objective Objective Narrative: see vital signs - Review of Systems Generalized/Overall Review: Reports: No Symptoms Reported Misc: All systems neg except as marked - Vitals Vitals: Last Vital Signs Temp 36.4 C 03/18/18 07:16 Pulse 104 H 03/18/18 07:16 Resp 16 03/18/18 07:16 BP 127/89 03/18/18 07:16 Pulse Ox 98 03/18/18 07:16 - Abnormal Lab Findings Abnormal Lab Findings: Abnormal Lab Results 03/18/18 Range/Units 06:05 RBC 2.97 L (4.2-5.4) M/mm3 Hgb 9.3 L (12.5-16.0) gm/dL Hct 27.0 L (37.0-47.0) % MCH 31.3 H (27-31) pg Immature Gran % (Auto) 0.70 H (0.001-0.429) % Immature Gran # (Auto) 0.06 H (0.000-0.0310) K/mm3 Neutrophils % 75.1 H (42-75.0) % Lymphocytes % 14.5 L (20-51) % Neutrophils # 6.5 H (1.3-6.0) K/mm3 Lymphocytes # 1.25 L (1.5-3.5) k/mm3 - Exam Constitutional: Present: Alert, Oriented x3, Cooperative, No distress Abdomen: Present: soft, nontender, nondistended - incision well-healed Extremity: Present: non-tender, no calf tenderness Skin Exam: Present: normal color, warm/dry, no cyanosis Appearance: Present: appropriate appearance Eye contact: Present: cooperative Thoughts: Present: normal thought pattern Cauti Physician Documentation - Urinary Catheter Management Urethral (Ross) Urethral Indwelling: No Date of Insertion: 03/17/18 Time of Insertion: 07:40 Date of Removal: 03/17/18 Time of Removal: 21:21 Assessment/Plan Plan Narrative: POD 1 s/p delivery Doing well Adjust pain medications Pt desires discharge tomorrow
[2018-03-18] MEDS: RANITIDINE HCL 15 MG/ML BTL PO SCH ×2 (09:48→21:07)
[2018-03-19] MEDS: HYDROcodone/ACETAMINOPHEN 1 EACH TABLET PO PRN ×2 (03:16→07:26)
[2018-03-19] MEDS: IBUPROFEN 800 MG TABLET PO PRN (07:26)
[2018-03-19] MEDS: DOCUSATE SODIUM 100 MG CAPSULE PO SCH ×2 (07:26→08:11)
[2018-03-19] MEDS: RANITIDINE HCL 15 MG/ML BTL PO SCH ×2 (07:28→08:11)
--- NOTE | 2018-03-19 10:52 | PN ---
Subjective - Date and Time Seen Date: 03/19/18 Subjective Narrative: post op day 2, s/p repeat c/s with BS doing well. no complaints. ambulating and tolerating diet. pain controlled. normal lochia. breast and bottle feeding now. wants to go home today. Objective - Vitals Vitals: Last Vital Signs Temp 36.8 C 03/19/18 06:58 Pulse 99 03/19/18 06:58 Resp 16 03/19/18 06:58 BP 131/72 03/19/18 06:58 Pulse Ox 98 03/19/18 06:58 - Exam Constitutional: Present: Alert, Oriented x3, Cooperative Respiratory: Present: no respiratory distress Abdomen: Present: soft, nontender, nondistended, other - incision dry and clean with steri strips on Extremity: Present: normal range of motion, normal inspection, no pedal edema, no calf tenderness Skin Exam: Present: normal color, warm/dry, no cyanosis Appearance: Present: appropriate appearance Eye contact: Present: cooperative, good eye contact, normal speech Cauti Physician Documentation - Urinary Catheter Management Urethral (Ross) Urethral Indwelling: No Date of Insertion: 03/17/18 Time of Insertion: 07:40 Date of Removal: 03/17/18 Time of Removal: 21:21 Assessment/Plan Plan Narrative: A: day 2, s/p repeat c/s and BS, stable and well. Plan: rountine care. will discharge home later today. Yamilex Vela MD
[2018-03-19 11:59] VITALS: BP 133/81
== END 2018-03-19 13:05 | disposition home or self-care (01) | DRG 784 ==
LOC: OB 03:48
PROVIDERS: ADMIT Obstetrics & Gynecology; ATTEND Obstetrics & Gynecology
CPT/HCPCS: 36415; 59025; 85025; 88302; 90686